=== PATIENT | male | born 1975 | race Caucasian/White ===

== ENCOUNTER 2017-07-02 04:46 | Emergency (ER) | payer OTHER, MEDICAID, SELFPAY ==
[2017-07-02 04:49] VITALS: BP 167/113; PULSE 97; RESP 20; TEMP 36.6; O2SAT 99; BMI 33.5
[2017-07-02 04:53] VITALS: BP 171/107; PULSE 103; RESP 20; O2SAT 99
--- NOTE | 2017-07-02 05:37 | ED.DCSUM_ITS ---
- ER Visit Summary Date of Service: 07/02/17 Chief Complaint: Rectal bleeding History of Present Illness: The patient is a 42 M presenting for evaluation secondary to rectal bleeding. Patient states that he was at work today he had a sudden onset of rectal bleeding. He states that he does have a history of hemorrhoids, but is never had bleeding similar to this. He states that he has a family history of colon cancer in his sister and he has never had a colonoscopy. He denies any weight loss or night sweats. He denies any usage of NSAIDs or aspirin. Denies any dark tarry stools. States that he has some abdominal fullness associated with this, but denies any presence of pain. Physical Examination: vital signs notable for blood pressure 171/107 heart rate of 103. Obese male no acute distress. No conjunctival pallor. Moist mucous membranes. No JVD heart was regular and tachycardic with no murmurs. Lung sounds clear. Abdomen was soft nontender nondistended normal bowel sounds no masses. Rectal exam shows a large external hemorrhoid at approximately the 7: 00 portion of the anus. This is nonthrombosed and does not appear to be actively bleeding. There is blood surrounding the anus. Digital rectal exam shows palpable internal hemorrhoids, and is grossly positive for blood. This was nontender as well. Test Results: CBC demonstrate leukocytosis 13 with normal hemoglobin and normal hematocrit. Chemistry panel unremarkable coagulation studies normal. Emergency Department Course and Treatment: Patient presented for evaluation secondary to GI bleeding. Patient had some mild tachycardia when he first arrived this likely was a element of being anxious. His tachycardia did improve on repeat evaluation. His laboratory workup was unremarkable, is not any sort of anticoagulants, he has normal vital signs. While he does have some active bleeding, this likely is from a bleeding hemorrhoid. I believe that he is appropriate for a trial of outpatient management of this GI bleed with outpatient follow-up for colonoscopy. Pt requested referral to Dr. Sullivan. Patient was given referral. He was given signs and symptoms which to return to the emergency department. Disposition: Discharge Impression: 1. Stable lower GI bleed 2. Familial history of colon cancer 3. Internal and external hemorrhoids This note was generated with [employer] software. It may contain incorrect words, spelling, and punctuation that were not noted in review of the chart prior to signing ED Disposition - Plan for ED Patient: Disposition: Home or Assisted Living Chief Complaint: GI Bleed Diagnosis: GI bleed Instructions: ED Hematochezia Stable Referrals: Travon Sullivan MD [STAFF PHYSICIAN] - As soon as possible
[2017-07-02 05:48] LABS: Absolute Lymphocyte Count 4.38 X10^3/ul (0.83-4.51); Absolute Neutrophil Count 7.6 X10^3/uL (2.0-7.7); Basophil# 0.06 X10^3/uL; Basophil% 0.4 % (0-1); Eosinophil# 0.55 X10^3/uL; Eosinophils% 4.1 % (0-5); Hematocrit 45.7 % (40-54); Hemoglobin 15.6 g/dl (13.0-16.5); Lymphocyte # 4.38 X10^3/ul (4.0); Lymphocyte % 32.5 % (19-41); Mean Corp Hgb Conc 34.1 g/gl (32-36); Mean Corpuscular Hgb 30.1 pg (27.0-32.0); Mean Corpuscular Volume 88.2 fL (80-94); Mean Platelet Vol. 11.5 fl (6.2-12.0); Monocyte# 0.83 X10^3/uL; Monocyte% 6.2 % (0-10); Neutrophil # 7.58 X10^3/uL (2.7-7.7); Neutrophil % 56.2 % (47-70); Partial Thromboplast Time 29.5 Seconds (24.1-36.2); Platelet Count 221 K/mm3 (150-450); RBC Distribution Width CV 13.8 % (11.6-14.6); RBC Distribution Width SD 44.4 fl (35.1-43.9); Red Blood Count 5.18 M/mm3 (4.6-6.2); White Blood Count 13.5 K/mm3 (4.4-11.0)
[2017-07-02 05:51] LABS: International Normalized Ratio 1.1; Prothrombin Time (Protime)PT. 13.7 SECONDS (11.7-14.9)
[2017-07-02 05:53] LABS: Anion Gap 9 (5-15); BUN 11 mg/dL (7-18); BUN/Creat Ratio 11.2 RATIO (10-20); Calcium,Total 8.5 mg/dL (8.5-10.1); Chloride 106 mmol/L (98-107); Creatinine, Serum 0.98 mg/dL (0.70-1.30); EST Glomerular Filtration Rate 90 mL/min (>60); Est Glom Filt Rate - Afr Amer 109 mL/min (>60); Estimated Creatinine Clearance 106.72 ml/min; Glucose 163 mg/dL (74-106); POSITIVE COUNT NO; POSITIVE DIFFERENTIAL NO; POSITIVE MORPHOLOGY NO; Potassium 3.7 mmol/L (3.5-5.1); Sodium Level 138 mmol/L (136-145)
[2017-07-02 06:16] VITALS: BP 159/99; RESP 18
== END 2017-07-02 06:17 | disposition home or self-care (01) ==
PROVIDERS: Emergency Provider Emergency Medicine; Family Provider Nurse Practitioner Family; PCP Nurse Practitioner Family
DX: K92.2 Gastrointestinal hemorrhage, unspecified (principal); K64.4 Residual hemorrhoidal skin tags; Z80.0 Family history of malignant neoplasm of digestive organs; Z72.0 Tobacco use
CPT/HCPCS: 80048; 85025; 85610; 85730; 99283

== ENCOUNTER 2017-08-01 05:54 | Emergency (ER) | payer OTHER, MEDICAID, SELFPAY ==
[2017-08-01 05:56] VITALS: BP 132/79; PULSE 112; RESP 16; TEMP 37; O2SAT 97; BMI 38.9
--- NOTE | 2017-08-01 05:57 | ED.RN ---
CALLED FOR EKG PER RN REQUEST, NO OLD EKG'S IN MUSE
--- NOTE | 2017-08-01 06:11 | EKG12_ITS ---
Test Reason : CP Blood Pressure : / mmHG Vent. Rate : 100 BPM Atrial Rate : 100 BPM P-R Int : 132 ms QRS Dur : 084 ms QT Int : 344 ms P-R-T Axes : 046 046 056 degrees QTc Int : 443 ms Normal sinus rhythm Normal ECG Confirmed by BALDO WAGNER ([id number]), movie editor BEN SCHNEIDER ([id number]) on 08/11/2017 6:19:45 PM Referred By: TRISTAN Confirmed By:BALDO WAGNER
--- NOTE | 2017-08-01 06:13 | ED.DCSUM_ITS ---
- ER Visit Summary Date of Service: 08/01/17 Chief Complaint: Chest pain History of Present Illness: The patient is a 42 M sudden left-sided chest pain starting at 5 AM while at work. Works hematoma noted when symptoms started. States tingling in his left hand and left leg. Denies dyspnea, nausea, diaphoresis. States pain is worse with deep breaths. EMS given 324 mg of aspirin. One nitroglycerin was given with moderate improvement however still states symptoms as a 6 out of 10. States squeezing sensation. History of hypertension, cousin with CA at age of 40. Tobacco history. No PE risk factors. No history of stress test or heart cath in the past. Physical Examination: General: Alert and oriented ?3, no acute distress HEENT: Normocephalic, atraumatic. Moist mucosa membranes Neck: supple, nontender. Cardiovascular: Regular rate 106 and rhythm, no murmurs Respiratory: Normal breath sounds, symmetric, no distress Abdomen: Soft, nontender, nondistended Extremities: Nontender, no edema, pulses intact ?4 Neuro: no focal neurological deficits. Test Results: EKG: Sinus rate of 100, no ST or T-wave changes. Chest x-ray negative. D-dimer negative. Troponin negative. Delta troponin pending. Emergency Department Course and Treatment: Patient EKG normal. Patient given nitro additionally, symptom-free. Troponin negative. Low risk Wells criteria for PE due to elevated heart rate. D-dimer obtained which was negative. Reevaluation patient symptom-free. Heart score is 3. I did suggest a heart pathway guideline with the patient, will obtain a delta troponin. If negative discharge with outpatient follow-up. Discussed if symptoms worsens he will return for reevaluation. Treatment Plan: [] Disposition: Plan discharge Impression: Acute chest pain This note was generated with [employer] dictation software. It may contain incorrect words, spelling, and punctuation that were not noted in review of the chart prior to signing ED Disposition - Plan for ED Patient: Disposition: Home or Assisted Living Chief Complaint: Chest Pain Diagnosis: Acute chest pain Instructions: ED Chest Pain Atypical Unkn Cause Referrals: David Cordoba [Primary Care Provider] - 3-5 Days
[2017-08-01 06:31] LABS: Absolute Lymphocyte Count 4.66 X10^3/ul (0.83-4.51); Absolute Neutrophil Count 6.6 X10^3/uL (2.0-7.7); Basophil# 0.07 X10^3/uL; Basophil% 0.5 % (0-1); Eosinophil# 0.61 X10^3/uL; Eosinophils% 4.7 % (0-5); Hematocrit 46.3 % (40-54); Hemoglobin 15.6 g/dl (13.0-16.5); Lymphocyte # 4.66 X10^3/ul (4.0); Lymphocyte % 35.7 % (19-41); Mean Corp Hgb Conc 33.7 g/gl (32-36); Mean Corpuscular Hgb 29.5 pg (27.0-32.0); Mean Corpuscular Volume 87.7 fL (80-94); Mean Platelet Vol. 12.1 fl (6.2-12.0); Monocyte# 1.01 X10^3/uL; Monocyte% 7.7 % (0-10); Neutrophil # 6.64 X10^3/uL (2.7-7.7); Platelet Count 258 K/mm3 (150-450); RBC Distribution Width CV 13.7 % (11.6-14.6); RBC Distribution Width SD 44.2 fl (35.1-43.9); Red Blood Count 5.28 M/mm3 (4.6-6.2)
[2017-08-01 06:34] LABS: POSITIVE COUNT NO; POSITIVE DIFFERENTIAL NO; POSITIVE MORPHOLOGY NO
[2017-08-01 06:42] VITALS: BP 132/76; PULSE 89
[2017-08-01 06:46] VITALS: BP 118/77; PULSE 108
[2017-08-01 07:02] LABS: D-Dimer Quantitative (DVT/PE) 0.36 FEU/ug/m (0.27-0.49)
[2017-08-01 07:07] LABS: Anion Gap 8 (5-15); BUN 12 mg/dL (7-18); BUN/Creat Ratio 14.3 RATIO (10-20); Calcium,Total 8.5 mg/dL (8.5-10.1); Chloride 109 mmol/L (98-107); Creatinine, Serum 0.84 mg/dL (0.70-1.30); EST Glomerular Filtration Rate 107 mL/min (>60); Est Glom Filt Rate - Afr Amer 130 mL/min (>60); Glucose 122 mg/dL (74-106); Potassium 3.9 mmol/L (3.5-5.1); Sodium Level 140 mmol/L (136-145)
--- NOTE | 2017-08-01 07:09 | RAD_ITS ---
STUDY: X-RAY CHEST REASON FOR EXAM: Male, 42 years old. chest pain TECHNIQUE: Frontal and lateral views of the chest. COMPARISON: None. FINDINGS: The lungs are clear and expanded. There is no demonstrated pleural abnormality. Normal size heart. Normal mediastinum and patsy. Normal visualized pulmonary arteries. Normal visualized aortic arch and descending thoracic aorta. Normal visualized thoracic spine. Normal visualized ribs, clavicles, and shoulders. There is no demonstrated abnormality of the visualized soft tissue structures of the upper abdomen. RAD/Chest PA and Lateral IMPRESSION: Normal x-ray examination of the chest. Electronically Signed: Leighann Barnhart MD at 7:40 EDT Tel , Service support ,
[2017-08-01 09:07] VITALS: BP 131/77; PULSE 102; RESP 16; O2SAT 93
--- NOTE | 2017-08-01 10:22 | ED.VISSUMM ---
- ER Visit Summary Date of Service: 08/01/17 Chief Complaint: [Chest pain] History of Present Illness: The patient is a 42 M [presented to the emergency department complaint of chest pain that started while at work today. Patient seen by Dr. Tay Cho and turned over to me awaiting a delta troponin. Patient was written for discharge if the delta troponin was negative. Patient's delta troponin was normal. Patient not currently having any chest pain. Patient tells me that he has a primary care physician that he will follow up with and get outpatient stress testing. Patient states that his chest pain was squeezing tightness that resolved after EMS gave him nitroglycerin. Patient does have a history of hypertension and he is a smoker and has a significant family history of heart disease as his father had [place] and open heart surgery in his 40s. I too had a long conversation with the patient and personally recommended admission for further evaluation and testing of his chest pain. Does not want to be admitted would prefer outpatient follow-up. Patient understands that he needs to return if his chest pain returns or condition should worsen in any way.] Physical Examination: [HEENT-PERRLA, EOMI. Cranial nerves II through XII grossly intact. TMs clear. Mucous membranes moist. No adenopathy. Cardiovascular-regular rate and rhythm without murmur or ectopy Lungs-clear to auscultation, chest wall stable without crepitus or subcu emphysema Abdomen-normoactive bowel sounds, soft, nontender, no rebound or rigidity, no peritoneal signs. Extremities-intact ?4, normal range of motion, normal pulses, atraumatic] Test Results: [The troponin was less than 0.015] Emergency Department Course and Treatment: [] Treatment Plan: [Follow-up with primary care physician for further evaluation. Disposition: [Discharged to home in stable condition] Impression: [Chest pain-etiology uncertain This note was generated with [employer] dictation software. It may contain incorrect words, spelling, and punctuation that were not noted in review of the chart prior to signing ED Disposition - Plan for ED Patient: Disposition: Home or Assisted Living Chief Complaint: Chest Pain Diagnosis: Acute chest pain Instructions: ED Chest Pain Atypical Unkn Cause Referrals: David Cordoba [Primary Care Provider] - 3-5 Days
== END 2017-08-01 10:50 | disposition home or self-care (01) ==
PROVIDERS: Emergency Provider Emergency Medicine; Family Provider Family Medicine; PCP Family Medicine
DX: R07.9 Chest pain, unspecified (principal); I10 Essential (primary) hypertension; F17.200 Nicotine dependence, unspecified, uncomplicated; Z79.899 Other long term (current) drug therapy
CPT/HCPCS: 36415; 71046; 80048; 84484; 85025; 85379; 93005; 99285; J7030; A4216

== ENCOUNTER 2018-10-20 09:39 | Inpatient (IN) | payer SELFPAY ==
[2018-10-20] VITALS (13 sets, daily range): BP systolic 143–170; BP diastolic 83–116; PULSE 98–121; RESP 14–20; TEMP 36.1–36.7; O2SAT 95–97; BMI 33.0; BMI 38.2; BMI 38.3
--- NOTE | 2018-10-20 09:50 | EKG12_ITS ---
Test Reason : DIZZINES Blood Pressure : / mmHG Vent. Rate : 105 BPM Atrial Rate : 105 BPM P-R Int : 140 ms QRS Dur : 084 ms QT Int : 322 ms P-R-T Axes : 058 052 036 degrees QTc Int : 425 ms Sinus tachycardia Possible Left atrial enlargement Borderline ECG Confirmed by BALDO WAGNER ([id number]), acquisitions editor CHICA PEGUERO ([id number]) on 10/26/2018 2:22:30 PM Referred By: Kelsey Teran Confirmed By:BALDO WAGNER
--- NOTE | 2018-10-20 09:55 | NURSING ---
NO OLD EKGS
[2018-10-20 10:05] LABS: Absolute Lymphocyte Count 2.35 X10^3/uL (0.83-4.51); Absolute Neutrophil Count 6.5 X10^3/uL (2.0-7.7); Basophil# 0.08 X10^3/uL; Basophil% 0.8 % (0-1); Eosinophil# 0.33 X10^3/uL; Eosinophils% 3.2 % (0-5); Hematocrit 45.4 % (40-54); Lymphocyte # 2.35 X10^3/ul (4.0); Lymphocyte % 22.9 % (19-41); Mean Corpuscular Hgb 30.1 pg (27.0-32.0); Mean Corpuscular Volume 91.2 fL (80-94); Mean Platelet Vol. 12.6 fl (6.2-12.0); Monocyte# 0.89 X10^3/uL; Monocyte% 8.7 % (0-10); NRBC Flagged by Analyzer 0 % (0-5); Neutrophil # 6.52 X10^3/uL (2.7-7.7); Neutrophil % 63.6 % (47-70); Platelet Count 190 K/mm3 (150-450); RBC Distribution Width CV 13.1 % (11.6-14.6); RBC Distribution Width SD 43.9 fl (35.1-43.9); Red Blood Count 4.98 M/mm3 (4.6-6.2); White Blood Count 10.3 K/mm3 (4.4-11.0)
[2018-10-20] MEDS: 0.9% Normal Saline 1,000 ML 150 ML IV ×3 (10:13→23:10)
[2018-10-20 10:24] LABS: Bacteria 0 SEEN /hpf (None Seen); Mucous, Urine 0 SEEN /hpf (<or=2+); Red Blood Cells-Urine 0 SEEN /hpf (0-5); Squamous Epithelial Cells - UA 0 SEEN /hpf (0-5); White Blood Cells 0 SEEN /hpf (0-5)
[2018-10-20 10:41] LABS: Color, Urine Straw (Yellow); Glucose, Dipstick 1000 mg/dl (Normal); Ketone-Dipstick Negative (Negative); Leukocyte Esterase-Dipstick Negative /ul (Negative); Nitrite-Dipstick Negative (Negative); Occult Blood-Urine Negative /ul (Negative); Protein-Dipstick Negative (Negative); Specific Gravity, Urine 1.005 (1.002-1.030); Urine Bilirubin Dipstick Negative (Negative); Urine Clarity Clear (Clear); Urine Urobilinogen Normal (Normal)
[2018-10-20 10:43] LABS: Anion Gap 9 (5-15); BUN 14 mg/dL (7-18); BUN/Creat Ratio 9.5 RATIO (10-20); Calcium,Total 9.2 mg/dL (8.5-10.1); Chloride 94 mmol/L (98-107); Creatinine, Serum 1.47 mg/dL (0.70-1.30); EST Glomerular Filtration Rate 56 mL/min (>60); Est Glom Filt Rate - Afr Amer 68 mL/min (>60); Estimated Creatinine Clearance 68.28 ml/min; Glucose 915 mg/dL (74-106); Potassium 4.2 mmol/L (3.5-5.1); Sodium Level 126 mmol/L (136-145)
--- NOTE | 2018-10-20 11:00 | ED.VISSUMM ---
- ER Visit Summary Date of Service: 10/20/18 Chief Complaint: [Blurry vision and increased thirst as well as frequent urination] History of Present Illness: The patient is a 43 M [resents to the emergency department with complaints for 6 or 7 weeks. Patient states that about 5 weeks ago he was seen by his primary care physician and in the office had a blood sugar of 298. Patient states that he lost his insurance and did not have any of the diabetic testing. Patient just has not felt well and had increased fatigue. His significant other made him come in today and get evaluated. Patient denies any fevers or recent illness. He otherwise has no medical history.] Physical Examination: [HEENT-PERRLA, EOMI. Cranial nerves II through XII grossly intact. TMs clear. Mucous membranes dry. No adenopathy. Cardiovascular-regular and tachycardic. No murmurs auscultated. Lungs-clear to auscultation, chest wall stable without crepitus or subcu emphysema Abdomen-normoactive bowel sounds, soft, nontender, no rebound or rigidity, no peritoneal signs. Extremities-intact ?4, normal range of motion, normal pulses, atraumatic] Test Results: [EKG obtained arrival shows sinus rhythm with a ventricular rate of 105 bpm with questionable atrial enlargement. CBC with differential showing a 10.3, hemoglobin 15, hematocrit 45, plates 190. Chemistry showed a sodium 126, potassium 4.2, chloride 94, CO2 23, glucose was 915. BUN 14 creatinine 1.47. Troponin is less than 1015.] Emergency Department Course and Treatment: [Patient was given normal saline and started on an insulin drip] Treatment Plan: [Admit] Disposition: [Admit] Impression: [Upper glycemia Hyperosmolar nonketotic state] This note was generated with [employer] dictation software. It may contain incorrect words, spelling, and punctuation that were not noted in review of the chart prior to signing ED Disposition - Plan for ED Patient: Referrals: Care Physician,No Primary [Primary Care Provider] -
--- NOTE | 2018-10-20 11:11 | HP.PCM_ITS ---
Problem List (1) Diabetes mellitus Status: Acute Qualifiers: Diabetes mellitus type: other specified (including FRED) Diabetes mellitus complication status: with other specified complication (2) Hypertension Status: Chronic Qualifiers: Hypertension type: essential hypertension Qualified Code(s): I10 - Essential (primary) hypertension (3) Hyperlipidemia Status: Chronic Qualifiers: Hyperlipidemia type: unspecified Qualified Code(s): E78.5 - Hyperlipidemia, unspecified (4) Obesity (BMI 30.0-34.9) Status: Chronic (5) Tobacco use Status: Chronic (6) ADD (attention deficit disorder) Status: Chronic Qualifiers: Hyperactivity presence: unspecified Qualified Code(s): F98.8 - Other specified behavioral and emotional disorders with onset usually occurring in childhood and adolescence History of Present Illness Date of Admission: 10/20/18 Chief Complaint: Malaise, fatigue, polyuria, polydipsia. The patient is a 43 y/o M w/ PMHx: Hypertension, hyperlipidemia, tobacco use, ADD with history of being evaluated proximally 1 month prior per his primary care physician with in office fingerstick with glucose 298 secondary to ongoing fatigue, dizziness, polyuria and polydipsia although mild at that time with additional lab orders requested however patient lost his insurance and was unable to complete this work-up in addition to discontinuation of his blood pressure and ADD regimen who now presents to the [facility] ED on 10/20/18 with progressively worsening fatigue, dizziness, malaise, polyuria, polydipsia, nausea with poor oral intake abilities over the last 1 week. Work-up in the ED included T 97, heart rate initially 121 with improvement 104, BP 160/116, respiratory rate 19, 96% room air, CBC with WC 10.3, hemoglobin 15, platelets 190 without shift, BMP with sodium 126, chloride 94, anion gap normal at 9, BUN 14, creatinine 1.47 with prior noted in 2018 at 0.84, glucose 915, hemoglobin A1c 10, troponin less than 0.015, urinalysis with glucose 1000 otherwise unremarkable with no ketones present, EKG with no acute evidence of ischemia with sinus tachycardia. In the ED patient initiated on normal saline at 150 cc/h in addition to insulin drip. Past Medical History Past Medical History (Chronic Problems): Chronic Problems (This Medical Record has been edited. Action required.) Hypertension (Chronic) Hyperlipidemia (Chronic) Obesity (BMI 30.0-34.9) (Chronic) Tobacco use (Chronic) ADD (attention deficit disorder) (Chronic) Allergies No Known Allergies Allergy (Verified 10/20/18 09:39) Home Medications: Ambulatory Orders Medication Instructions Recorded Lisdexamfetamine Dimesylate 60 mg PO DAILY 07/02/17 [Vyvanse] Vyvanse 60 mg PO DAILY 08/01/17 Surgical History: no surgical history Psychiatric History: Attn. deficit disorder Lives: Spouse/ Significant Other, With Family Smoking Status: Current every day smoker - Patient currently smokes 1 pack/day cigarette tobacco usage starting when he was approximately 22 years old. Tobacco Use: Cigarettes Alcohol: Occasional Drugs: None - *Family History Maternal History Items: - - Patient notes a maternal family history of heart disease, MD, coronary disease with stents placed. She also notes a maternal family side of notable diabetic history in both his mother's parents. Paternal History Items: - - Patient notes a paternal family history of heart disease, COPD. Patient also notes a market paternal family history with diabetes in both of his father's parents. Review of Systems Constitutional: Reports: Anorexia, Malaise, Weakness, Fatigue. Denies: Chills, Fever, Weight Change HEENT: Denies: Head Aches, Sinus Congestion, Sinus Drainage Cardiovascular: Denies: Chest Pain, Palpitations Respiratory: Denies: Cough, Shortness of breath at rest, Sputum production Gastrointestinal: Reports: Nausea. Denies: Abdominal Pain, Vomiting Genitourinary: Reports: Frequency. Denies: Dysuria Musculoskeletal: Reports: Joint Pain. Denies: Joint Tenderness Skin: Denies: Rash, Wounds Neurological: Denies: Numbness, Tingling, Focal weakness Psychiatric: Reports: - - ADD.. Denies: Anxiety, Depression, Homicidal Ideations, Suicidal Ideations Endocrine: Reports: Polydipsia, Polyuria Hematologic/ Lymphatic: Denies: Easy Bruising, Easy Bleeding VTE Information - Inpt Only VTE Present on Admission: No VTE Mechan Device Prophylaxis: SCD's VTE Pharm Prophylaxis ordered?: Yes Patient Problems: Active and Suspected Problems (This Medical Record has been edited. Action required.) Diabetes mellitus (Acute) Subjective: Seated upright in ED bed, fatigued appearance, notes nauseous otherwise no acute complaint. Objective: Physical Examination: General: awake, alert, oriented x 3 and cooperative, seated upright in the ED bed, fatigued appearance, notes nauseous otherwise no acute complaint, insulin drip being initiated now. Skin: normal color, turgor, no icterus, cyanosis. HEENT: AT/NC, EOMI, PERRLA, dry MM, no carotid bruits or JVD noted. Lungs: CTA bilaterally, moderate effort, mild decrease BL bases, no rales, ronchi or wheezing. Heart: Improved but mildly tachycardic with regular rhythm; no gallop, rub audible. Abdomen: soft, pes, NTTP, ND, normal BS, no HSM. Extremities: no cyanosis, clubbing, or edema. Neurological: patient awake, alert, oriented x 3; cognitive function intact; pupils equally reactive to light and accomodation; cranial nerves II-XII grossly normal, moving all 4 extremities, no focal deficits, strength moderately global decrease secondary to acute presentation. Psychiatric: affect appears fatigued, no acute evidence of depressive or anxiety feelings. - Physical Exam Vital Signs Temp Pulse Resp BP Pulse Ox 97.0 F L 100 16 143/97 H 95 10/20/18 09:39 10/20/18 10:07 10/20/18 10:07 10/20/18 10:07 10/20/18 10:07 Oxygen Delivery Method Room Air Weight: 230 lb Body Mass Index (BMI) 33.0 Laboratory Tests Past 24 Hrs 10/20/18 10/20/18 10/20/18 10:00 10:00 10:00 WBC 10.3 RBC 4.98 Hgb 15.0 Hct 45.4 MCV 91.2 MCH 30.1 MCHC 33.0 RDW Std Deviation 43.9 RDW Coeff of Solis 13.1 Plt Count 190 MPV 12.6 H Immature Gran % (Auto) 0.800 Neut % (Auto) 63.6 Lymph % (Auto) 22.9 Fountain % (Auto) 8.7 Eos % (Auto) 3.2 Baso % (Auto) 0.8 Absolute Neuts (auto) 6.5 Absolute Lymphs (auto) 2.35 Nucleated RBC % 0 Sodium 126 L Potassium 4.2 Chloride 94 L Carbon Dioxide 23.0 Anion Gap 9 BUN 14 Creatinine 1.47 H Estim Creat Clear Calc 68.28 Est GFR (MDRD) Af Amer 68 Est GFR (MDRD) Non-Af 56 L BUN/Creatinine Ratio 9.5 L Glucose 915 H* Hemoglobin A1c 10.0 H Calcium 9.2 Troponin I < 0.015 Urine Color Urine Clarity Urine pH Ur Specific Austin Urine Protein Urine Glucose (UA) Urine Ketones Urine Occult Blood Urine Nitrite Urine Bilirubin Urine Urobilinogen Ur Leukocyte Esterase Urine RBC Urine WBC Ur Squamous Epith Cells Urine Bacteria Urine Mucus 10/20/18 10:10 WBC RBC Hgb Hct MCV MCH MCHC RDW Std Deviation RDW Coeff of Solis Plt Count MPV Immature Gran % (Auto) Neut % (Auto) Lymph % (Auto) Fountain % (Auto) Eos % (Auto) Baso % (Auto) Absolute Neuts (auto) Absolute Lymphs (auto) Nucleated RBC % Sodium Potassium Chloride Carbon Dioxide Anion Gap BUN Creatinine Estim Creat Clear Calc Est GFR (MDRD) Af Amer Est GFR (MDRD) Non-Af BUN/Creatinine Ratio Glucose Hemoglobin A1c Calcium Troponin I Urine Color Straw Urine Clarity Clear Urine pH 6.0 Ur Specific Austin 1.005 Urine Protein Negative Urine Glucose (UA) 1000 H Urine Ketones Negative Urine Occult Blood Negative Urine Nitrite Negative Urine Bilirubin Negative Urine Urobilinogen Normal Ur Leukocyte Esterase Negative Urine RBC 0 SEEN Urine WBC 0 SEEN Ur Squamous Epith Cells 0 SEEN Urine Bacteria 0 SEEN Urine Mucus 0 SEEN Assessment/Plan All Active Problems (This Medical Record has been edited. Action required.) Diabetes mellitus (Acute) The patient is a 43 y/o M w/ PMHx: Hypertension, hyperlipidemia, tobacco use, ADD with history of being evaluated proximally 1 month prior per his primary ca re physician with in office fingerstick with glucose 298 secondary to ongoing fatigue, dizziness, polyuria and polydipsia although mild at that time with additional lab orders requested however patient lost his insurance and was unable to complete this work-up in addition to discontinuation of all his medications. 1. Hyperglycemia with new onset diabetes mellitus: Work-up in the ED included T 97, heart rate initially 121 with improvement 104, BP 160/116, respiratory rate 19, 96% room air, CBC with WC 10.3, hemoglobin 15, platelets 190 without shift, BMP with sodium 126, chloride 94, anion gap normal at 9, BUN 14, creatinine 1.47 with prior noted in 2018 at 0.84, glucose 915, hemoglobin A1c 10, troponin less than 0.015, urinalysis with glucose 1000 otherwise unremarkable with no ketones present, EKG with no acute evidence of ischemia with sinus tachycardia. Given that insulin drip was already initiated in the ED will continue, admit to the ICU, check serial K+, glucose w/ IVF changes pending these levels, serial chemistry, obtain mag, phos daily w/ repletion as needed, transition to home SC regimen once blood sugars remain less than 250?2 serially, nutrition consultation for education and teaching. Encouraged diet diabetic regimen compliance. Once clinically improved will need to consider transition to oral regimen also upon discharge pending repeat renal function. Case management consultation to assist with discharge planning given no insurance and inability to afford medications. 2. Acute kidney injury: Secondary to acute presentation #1, hyperglycemia, new onset diabetes. Admission BUN/Cr 14/1.47, prior baseline creatinine noted to be 0.8-0.9. Will hydrate, hold re-addition of any nephrotoxic medications, running as noted #1 with also repeat chemistry in AM. If no improvement would plan FeNa and renal ultrasound assessment. 3. Hyponatremia, secondary to #1, hyperglycemic with new onset DM: We will continue to aggressively hydrate, administer 2 L bolus as not initiated in the ED, continue aggressive IV hydration following this, with resolution of hypoglycemia expect normalization. 4. Hypertension: Once JERRY has resolved will restart lisinopril regimen, and interim IV hydralazine PRN. 5. Hyperlipidemia: Not on regimen, FLP in a.m. 6. Tobacco Abuse: Encouraged cessation, inpatient consultation per RT, NR if desired. 7. Obesity: Weight loss and lifestyle changes encouraged, nutrition consulted. 8. DVT prophylaxis: SCDs, Lovenox. Code Visit Inpatient E&M: [id number] Init Hosp L3
--- NOTE | 2018-10-20 11:12 | NURSING ---
DR DOUGLAS FOR DR HIDALGO
--- NOTE | 2018-10-20 11:15 | NURSING ---
ICU WHITE HYPEROSMOLAR NON KETOTIC STATE, HYPERGLYCEMIA
[2018-10-20] MEDS: 0.9% Normal Saline 1,000 ML 999 ML IV ×2 (12:22→13:37)
[2018-10-20 13:16] LABS: Bedside Glucose 444 mg/dL (70-110)
[2018-10-20 13:16] LABS: Bedside Glucose > 500 mg/dL (70-110)
[2018-10-20 13:20] LABS: Osmolality, Serum 320 mOsm/KG (275-295)
[2018-10-20 13:22] LABS: Magnesium 2.1 mg/dL (1.6-2.6); Phosphorus 4.2 mg/dL (2.5-4.9)
[2018-10-20 14:15] LABS: Bedside Glucose 320 mg/dL (70-110)
[2018-10-20 14:32] LABS: Anion Gap 3 (5-15); BUN 11 mg/dL (7-18); BUN/Creat Ratio 11.4 RATIO (10-20); Calcium,Total 8.9 mg/dL (8.5-10.1); Chloride 108 mmol/L (98-107); Creatinine, Serum 0.96 mg/dL (0.70-1.30); EST Glomerular Filtration Rate 91 mL/min (>60); Est Glom Filt Rate - Afr Amer 110 mL/min (>60); Estimated Creatinine Clearance 104.56 ml/min; Glucose 339 mg/dL (74-106); Potassium 3.9 mmol/L (3.5-5.1); Sodium Level 138 mmol/L (136-145)
[2018-10-20 15:10] LABS: Bedside Glucose 316 mg/dL (70-110)
[2018-10-20 16:16] LABS: Bedside Glucose 266 mg/dL (70-110)
[2018-10-20 17:46] LABS: Bedside Glucose 215 mg/dL (70-110)
[2018-10-20] MEDS: Insulin Lispro 100 UNIT/ML INSULN.PEN SC ×2 (17:49→21:17)
[2018-10-20 21:41] LABS: Bedside Glucose 339 mg/dL (70-110)
[2018-10-21 02:00] VITALS: BP 137/87; PULSE 82; RESP 18; TEMP 36.7; O2SAT 97
[2018-10-21 06:24] LABS: Absolute Lymphocyte Count 2.83 X10^3/uL (0.83-4.51); Absolute Neutrophil Count 6.3 X10^3/uL (2.0-7.7); Basophil# 0.08 X10^3/uL; Basophil% 0.8 % (0-1); Eosinophils% 3.9 % (0-5); Hematocrit 44.2 % (40-54); Hemoglobin 14.5 g/dL (13.0-16.5); Lymphocyte # 2.83 X10^3/ul (4.0); Lymphocyte % 27.3 % (19-41); Mean Corp Hgb Conc 32.8 g/dL (32-36); Mean Corpuscular Hgb 29.1 pg (27.0-32.0); Mean Corpuscular Volume 88.8 fL (80-94); Mean Platelet Vol. 12.4 fl (6.2-12.0); Monocyte# 0.68 X10^3/uL; Monocyte% 6.6 % (0-10); NRBC Flagged by Analyzer 0 % (0-5); Neutrophil % 60.6 % (47-70); Platelet Count 171 K/mm3 (150-450); RBC Distribution Width CV 13.1 % (11.6-14.6); RBC Distribution Width SD 42.6 fl (35.1-43.9); Red Blood Count 4.98 M/mm3 (4.6-6.2); White Blood Count 10.4 K/mm3 (4.4-11.0)
[2018-10-21 06:44] LABS: Anion Gap 8 (5-15); BUN 13 mg/dL (7-18); BUN/Creat Ratio 16.2 RATIO (10-20); Chloride 105 mmol/L (98-107); Cholesterol 238 mg/dL (200); EST Glomerular Filtration Rate 113 mL/min (>60); Est Glom Filt Rate - Afr Amer 136 mL/min (>60); Estimated Creatinine Clearance 125.47 ml/min; Glucose 293 mg/dL (74-106); High Density Lipoprotein 22 mg/dL; Potassium 4.1 mmol/L (3.5-5.1); Sodium Level 136 mmol/L (136-145); Triglycerides 500 mg/dL
[2018-10-21 06:53] VITALS: BP 158/101; PULSE 87; RESP 18; TEMP 36.4; O2SAT 99
[2018-10-21 07:01] LABS: Bedside Glucose 311 mg/dL (70-110)
[2018-10-21 08:00] VITALS: BP 178/115; PULSE 87; RESP 16; TEMP 36.8; O2SAT 97
[2018-10-21] MEDS: Insulin Lispro 100 UNIT/ML INSULN.PEN SC (08:01)
[2018-10-21] MEDS: Lisinopril 10 MG Tablet PO (08:11)
--- NOTE | 2018-10-21 08:15 | DCINST_ITS ---
- Discharge Diagnoses Current Active Problems: Current Active and Chronic Problems (This Medical Record has been edited. Action required.) Diabetes mellitus (Acute) Hypertension (Chronic) Hyperlipidemia (Chronic) Obesity (BMI 30.0-34.9) (Chronic) Tobacco use (Chronic) ADD (attention deficit disorder) (Chronic) You will use the following diet at home:: Calorie/Carbohydrate Controlled (specify 1200, 1400, etc) - 1800 calories Your food should be the consistency of: Regular Your liquids should be the consistency of: Regular/Thin Discharge Activity: Return to Normal Activity Call your doctor if you observe: Fever of 101 or Higher, Shortness of breath, Dizziness, Fainting spells, Swelling in the ankles, Chest pain, Increased palpitations (irregular heartbeat) Instructions: A1c, Diabetes: Understanding Carbohydrates, Diabetes: Understanding Carbohydrates, Fats, and Protein, Diabetes: Ways to Take Medication, Oral Therapy for Type 2 Diabetes, Types of Insulin, Using Injected Insulin Additional Instructions: F/u with your PCP in 3-5 days for repeat BMP to evaluate BG and creatinine Allergies/Adverse Reactions: Allergies No Known Allergies Allergy (Verified 10/20/18 09:39) Medications to take at Discharge Lisdexamfetamine Dimesylate [Vyvanse] 70 mg PO DAILY 10/20/18 Atorvastatin Calcium [Lipitor] 40 mg PO QHS #30 tab 10/21/18 Insulin Glargine [Lantus SoloStar Pen] 20 units SUBCUT QHS #1 pen 10/21/18 Lisinopril [Zestril] 10 mg PO DAILY #30 tab 10/21/18 Metformin HCl [Metformin ER Gastric] 500 mg PO DAILY #30 [id number] 10/21/18 The following prescriptions were given: Insulin Glargine [Lantus SoloStar Pen] 20 units SUBCUT QHS #1 pen Transmission Status: Pending to [facility] Atorvastatin Calcium [Lipitor] 40 mg PO QHS #30 tab Transmission Status: Pending to [facility] Metformin HCl [Metformin ER Gastric] 500 mg PO DAILY #30 [id number] Transmission Status: Pending to [facility] Lisinopril [Zestril] 10 mg PO DAILY #30 tab Transmission Status: Pending to [facility] Orders to be completed after discharge: Glucometer Location: None Selected Primary Care Physician: Care Physician,No Primary [NON-STAFF] - Please follow up with your Primary Care Physician in: 3-5 days Test Results: Test results from this visit will be discussed in further detail at your follow- up appointment, if applicable.
--- NOTE | 2018-10-21 08:19 | DS.PCM_ITS ---
Discharge Date and Diagnosis - Problem List Patient Problems: Active and Suspected Problems (This Medical Record has been edited. Action required.) Diabetes mellitus (Acute) Date of Admission: 10/20/18 Date of Discharge: 10/21/18 - Primary Discharge Diagnosis Active and Suspected Problems (This Medical Record has been edited. Action required.) Diabetes mellitus (Acute) - Secondary Discharge Diagnosis Chronic Problems (This Medical Record has been edited. Action required.) Hypertension (Chronic) Hyperlipidemia (Chronic) Obesity (BMI 30.0-34.9) (Chronic) Tobacco use (Chronic) ADD (attention deficit disorder) (Chronic) Hospital Course and Treatment Imaging Results: None Consults: None Operations: None Procedures: None Summary of Care Provided: Per HPI: The patient is a 43 y/o M w/ PMHx: Hypertension, hyperlipidemia, tobacco use, ADD with history of being evaluated proximally 1 month prior per his primary care physician with in office fingerstick with glucose 298 secondary to ongoing fatigue, dizziness, polyuria and polydipsia although mild at that time with additional lab orders requested however patient lost his insurance and was unable to complete this work-up in addition to discontinuation of his blood pressure and ADD regimen who now presents to the [facility] ED on 10/20/18 with progressively worsening fatigue, dizziness, malaise, polyuria, polydipsia, nausea with poor oral intake abilities over the last 1 week. Work-up in the ED included T 97, heart rate initially 121 with improvement 104, BP 160/116, respiratory rate 19, 96% room air, CBC with WC 10.3, hemoglobin 15, platelets 190 without shift, BMP with sodium 126, chloride 94, anion gap normal at 9, BUN 14, creatinine 1.47 with prior noted in 2018 at 0.84, glucose 915, hemoglobin A1c 10, troponin less than 0.015, urinalysis with glucose 1000 otherwise unremarkable with no ketones present, EKG with no acute evidence of ischemia with sinus tachycardia. In the ED patient initiated on normal saline at 150 cc/h in addition to insulin drip. Hospital Course 1. New onset type 2 diabetes/HTN/HLD/hyponatremia/morbid [id number] male who presented with polyuria, polydipsia as well as malaise and fatigue was found to have a blood sugar of 900 without any ketones or acidemia. He was initially started on an insulin drip in the ER and was rapidly titrated off and given multiple fluid boluses, which resolved his hyponatremia. He improved much faster than anticipated, he feels much better today and would like to go home. I had an extensive discussion with him about his diagnosis of diabetes and then the medication that would be necessary for him to be on. Given his elevated blood pressure between the 140s and 160 systolic, I started him on lisinopril 10 mg daily. Also his triglycerides and cholesterol were elevated and therefore I started him on Lipitor 40 mg. He was on Lantus 10 units twice daily as well as a sliding scale insulin, his blood sugars today were in the high 200s to low 300s. I continued with his Lantus at 20 units at night and discontinued his sliding scale on discharge. I started him on 500 mg of metformin extended release with instructions to increase to 2 pills in 2 weeks if he is not having any GI discomfort. He needs to follow-up with his primary care doctor in 3 to 5 days for a BMP to evaluate his creatinine given the fact that he was started on lisinopril. He states that his biggest downfall is that he drinks 3-4, 20 ounce bottles of regular Mountain Dew. I discussed with him that the sugar load in these alone would be enough to lead to his diabetes. He understands that he needs to cut this out completely and hopefully will be able to come off of insulin fairly quickly if he makes his lifestyle modifications and changes, and loses a significant amount of weight. Patient Problems: Active and Suspected Problems (This Medical Record has been edited. Action required.) Diabetes mellitus (Acute) - Physical Exam General: Alert, Oriented x3, Cooperative, No apparent distress HEENT: Atraumatic, PERRLA, EOMI, Normocephalic Oral: Moist Mucosa Neck: Supple, No JVD Lungs: Clear to auscultation, Normal air movement, No rhonchi, No wheeze, No rales Cardiovascular: Regular rate, Regular Rhythm, Normal S1, Normal S2, No murmurs Abdomen: Soft, Non Tender, Non-Distended, No Hepato-splenomegaly, Obese Extremities: No edema, Capillary Refill Less than 3 Seconds Skin: No rashes, No breakdown Neurological: Neuro grossly intact, Sensory exam intact to light touch and pain Psych/Mental Status: Normal Affect, Appropriate Vital Signs Temp Pulse Resp BP Pulse Ox 97.5 F L 87 18 158/101 H 99 10/21/18 06:53 10/21/18 06:53 10/21/18 06:53 10/21/18 06:53 10/21/18 06:53 Oxygen Delivery Method Room Air Weight: 266 lb 12.149 oz Body Mass Index (BMI) 38.2 Intake and Output for Last 24 Hours 10/19/18 10/20/18 10/21/18 23:59 23:59 23:59 Intake Total 4258.16 / 4258.16 1000 / 1000 Output Total 450 / 450 1500 / 1500 Balance 3808.16 / 3808.16 -500 / -500 Laboratory Tests Past 24 Hrs 10/20/18 10/20/18 10/20/18 10:00 10:00 10:00 WBC 10.3 RBC 4.98 Hgb 15.0 Hct 45.4 MCV 91.2 MCH 30.1 MCHC 33.0 RDW Std Deviation 43.9 RDW Coeff of Solis 13.1 Plt Count 190 MPV 12.6 H Immature Gran % (Auto) 0.800 Neut % (Auto) 63.6 Lymph % (Auto) 22.9 [place] % (Auto) 8.7 Eos % (Auto) 3.2 Baso % (Auto) 0.8 Absolute Neuts (auto) 6.5 Absolute Lymphs (auto) 2.35 Nucleated RBC % 0 Sodium 126 L Potassium 4.2 Chloride 94 L Carbon Dioxide 23.0 Anion Gap 9 BUN 14 Creatinine 1.47 H Estim Creat Clear Calc 68.28 Est GFR (MDRD) Af Amer 68 Est GFR (MDRD) Non-Af 56 L BUN/Creatinine Ratio 9.5 L Glucose 915 H* Hemoglobin A1c 10.0 H Serum Osmolality Calcium 9.2 Phosphorus Magnesium Troponin I < 0.015 Triglycerides Cholesterol LDL Cholesterol VLDL Cholesterol HDL Cholesterol Urine Color Urine Clarity Urine pH Ur Specific [place] Urine Protein Urine Glucose (UA) Urine Ketones Urine Occult Blood Urine Nitrite Urine Bilirubin Urine Urobilinogen Ur Leukocyte Esterase Urine RBC Urine WBC Ur Squamous Epith Cells Urine Bacteria Urine Mucus 10/20/18 10/20/18 10/20/18 10:00 10:00 10:10 WBC RBC Hgb Hct MCV MCH MCHC RDW Std Deviation RDW Coeff of Solis Plt Count MPV Immature Gran % (Auto) Neut % (Auto) Lymph % (Auto) [place] % (Auto) Eos % (Auto) Baso % (Auto) Absolute Neuts (auto) Absolute Lymphs (auto) Nucleated RBC % Sodium Potassium Chloride Carbon Dioxide Anion Gap BUN Creatinine Estim Creat Clear Calc Est GFR (MDRD) Af Amer Est GFR (MDRD) Non-Af BUN/Creatinine Ratio Glucose Hemoglobin A1c Serum Osmolality 320 H Calcium Phosphorus 4.2 Magnesium 2.1 Troponin I Triglycerides Cholesterol LDL Cholesterol VLDL Cholesterol HDL Cholesterol Urine Color Straw Urine Clarity Clear Urine pH 6.0 Ur Specific [place] 1.005 Urine Protein Negative Urine Glucose (UA) 1000 H Urine Ketones Negative Urine Occult Blood Negative Urine Nitrite Negative Urine Bilirubin Negative Urine Urobilinogen Normal Ur Leukocyte Esterase Negative Urine RBC 0 SEEN Urine WBC 0 SEEN Ur Squamous Epith Cells 0 SEEN Urine Bacteria 0 SEEN Urine Mucus 0 SEEN 10/20/18 10/21/18 10/21/18 14:10 06:05 06:05 WBC 10.4 RBC 4.98 Hgb 14.5 Hct 44.2 MCV 88.8 MCH 29.1 MCHC 32.8 RDW Std Deviation 42.6 RDW Coeff of Solis 13.1 Plt Count 171 MPV 12.4 H Immature Gran % (Auto) 0.800 Neut % (Auto) 60.6 Lymph % (Auto) 27.3 [place] % (Auto) 6.6 Eos % (Auto) 3.9 Baso % (Auto) 0.8 Absolute Neuts (auto) 6.3 Absolute Lymphs (auto) 2.83 Nucleated RBC % 0 Sodium 138 136 Potassium 3.9 4.1 Chloride 108 H 105 Carbon Dioxide 27.0 23.0 Anion Gap 3 L 8 BUN 11 13 Creatinine 0.96 0.80 Estim Creat Clear Calc 104.56 125.47 Est GFR (MDRD) Af Amer 110 136 Est GFR (MDRD) Non-Af 91 113 BUN/Creatinine Ratio 11.4 16.2 Glucose 339 H 293 H Hemoglobin A1c Serum Osmolality Calcium 8.9 8.0 L Phosphorus Magnesium Troponin I Triglycerides 500 H Cholesterol 238 H LDL Cholesterol TNP VLDL Cholesterol TNP HDL Cholesterol 22 L Urine Color Urine Clarity Urine pH Ur Specific [place] Urine Protein Urine Glucose (UA) Urine Ketones Urine Occult Blood Urine Nitrite Urine Bilirubin Urine Urobilinogen Ur Leukocyte Esterase Urine RBC Urine WBC Ur Squamous Epith Cells Urine Bacteria Urine Mucus POC Glucose 10/21/18 10/20/18 10/20/18 06:54 21:09 17:39 POC Glucose 311 H 339 H 215 H 10/20/18 10/20/18 10/20/18 16:04 15:04 14:01 POC Glucose 266 H 316 H 320 H 10/20/18 10/20/18 13:05 12:06 POC Glucose 444 H > 500 H* Discharge Diet: 1800 Calorie Control Diet, Carb Control Diet Discharge Activity: Return to Normal Activity Call your doctor if you observe: Fever of 101 or Higher, Shortness of breath, Dizziness, Fainting spells, Swelling in the ankles, Chest pain, Increased palpitations (irregular heartbeat) Home Medications: Medications to take at Discharge Lisdexamfetamine Dimesylate [Vyvanse] 70 mg PO DAILY 10/20/18 Atorvastatin Calcium [Lipitor] 40 mg PO QHS #30 tab 10/21/18 Insulin Glargine [Lantus SoloStar Pen] 20 units SUBCUT QHS #1 pen 10/21/18 Lisinopril [Zestril] 10 mg PO DAILY #30 tab 10/21/18 Metformin HCl [Metformin ER Gastric] 500 mg PO DAILY #30 [id number] 10/21/18 Following Prescrptions Were Given to Patient: Insulin Glargine [Lantus SoloStar Pen] 20 units SUBCUT QHS #1 pen Transmission Status: Pending to [facility] Atorvastatin Calcium [Lipitor] 40 mg PO QHS #30 tab Transmission Status: Pending to [facility] Metformin HCl [Metformin ER Gastric] 500 mg PO DAILY #30 [id number] Transmission Status: Pending to [facility] Lisinopril [Zestril] 10 mg PO DAILY #30 tab Transmission Status: Pending to [facility] Other Amb Orders: Glucometer Location: None Selected Primary Care Physician: Care Physician,No Primary [NON-STAFF] - Please follow up with your Primary Care Physician in: 3-5 days Patient Instructions: A1c, Using Injected Insulin, Oral Therapy for Type 2 Diabetes, Types of Insulin, Diabetes: Understanding Carbohydrates, Diabetes: Understanding Carbohydrates, Fats, and Protein, Diabetes: Ways to Take Medication Disposition: Home Minutes spent on discharge:: 35 Patient Condition:: Stable Medical Necessity - Tobacco Use Smoking Status: Current every day smoker Tobacco Use: Cigarettes Meaningful Use Info Meaningful Use Diagnoses (Choose all that apply): None applicable Code Visit Inpatient E&M: 39136 Disch Hosp
--- NOTE | 2018-10-21 09:23 | CASEMGMT ---
Social Work Note Pt is listed as self-pay. PFS saw pt. Per PFS notes, pt started a new job and doesn't have insurance yet. Pt and pt's annual income is $60-65k and pt makes too much for [employer] and Medicaid. Pt was provided [facility] application. Claudia Mattson MSW, [employer]
[2018-10-21 10:10] VITALS: BP 149/99; PULSE 102; RESP 18; TEMP 36.5; O2SAT 97
--- NOTE | 2018-10-21 10:36 | CASEMGMT ---
RN CM NOTE. Pt dc'd prior to RN CM assessment. Was seen by SW for self pay status. Frances HUNTERN RN ACM
== END 2018-10-21 10:15 | disposition home or self-care (01) | DRG 638 ==
LOC: ED 10:16 → ICU 12:06 → MS3 10-21 06:56
PROVIDERS: Admitting Provider Family Medicine; Emergency Provider Emergency Medicine; Family Provider Nurse Practitioner Family; PCP Nurse Practitioner Family; Referring Provider Family Medicine; Visit Provider Family Medicine
DX: E11.65 Type 2 diabetes mellitus with hyperglycemia (principal); N17.9 Acute kidney failure, unspecified; E87.1 Hypo-osmolality and hyponatremia; E78.5 Hyperlipidemia, unspecified; I10 Essential (primary) hypertension; F98.8 Other specified behavioral and emotional disorders with onset usually occurring in childhood and adolescence; E66.9 Obesity, unspecified; Z68.33 Body mass index [BMI] 33.0-33.9, adult; F17.210 Nicotine dependence, cigarettes, uncomplicated
CPT/HCPCS: 80048; 80061; 81001; 82962; 83036; 83735; 83930; 84100; 84484; 85025; 93005; 97802; 97803; 99285; 99406; J7030; A4216

== ENCOUNTER → 2019-03-16 06:02 | Outpatient (CLI) | payer BC, SELFPAY ==
[2018-10-20 12:27] VITALS: BMI 38.2
[2019-03-16 07:49] LABS: Absolute Lymphocyte Count 4.45 X10^3/uL (0.83-4.51); Absolute Neutrophil Count 8.5 X10^3/uL (2.0-7.7); Basophil# 0.12 X10^3/uL; Basophil% 0.8 % (0-1); Eosinophil# 0.41 X10^3/uL; Eosinophils% 2.8 % (0-5); Hematocrit 47.4 % (40-54); Hemoglobin 15.7 g/dL (13.0-16.5); Lymphocyte # 4.45 X10^3/ul (4.0); Mean Corp Hgb Conc 33.1 g/dL (32-36); Mean Corpuscular Hgb 29.1 pg (27.0-32.0); Mean Corpuscular Volume 87.8 fL (80-94); Mean Platelet Vol. 12.8 fl (6.2-12.0); Monocyte# 1.14 X10^3/uL; Monocyte% 7.7 % (0-10); NRBC Flagged by Analyzer 0 % (0-5); Neutrophil # 8.49 X10^3/uL (2.7-7.7); Neutrophil % 57.3 % (47-70); Platelet Count 260 K/mm3 (150-450); RBC Distribution Width CV 13.2 % (11.6-14.6); RBC Distribution Width SD 41.8 fl (35.1-43.9); White Blood Count 14.8 K/mm3 (4.4-11.0)
[2019-03-16 08:33] LABS: ALB/GLOB Ratio 0.9 RATIO (0.9-2.4); AST(SGOT) 34 U/L (15-37); Alanine Aminotransfer ALT/SGPT 45 U/L (16-61); Albumin, Serum 3.3 g/dL (3.2-5.0); Alkaline Phosphatase 120 U/L (45-117); Anion Gap 3 (5-15); BUN 13 mg/dL (7-18); BUN/Creat Ratio 15.4 RATIO (10-20); Calcium,Total 9.1 mg/dL (8.5-10.1); Chloride 103 mmol/L (98-107); Cholesterol 126 mg/dL (200); Creatinine, Serum 0.84 mg/dL (0.70-1.30); EST Glomerular Filtration Rate 106 mL/min (>60); Est Glom Filt Rate - Afr Amer 128 mL/min (>60); Globulin 3.7 g/dL (2.2-4.2); Glucose 263 mg/dL (74-106); High Density Lipoprotein 29 mg/dL; Potassium 4.3 mmol/L (3.5-5.1); Sodium Level 134 mmol/L (136-145); Thyroid Stim Hormone (TSH) 1.74 uIU/mL (0.358-3.74); Triglycerides 159 mg/dL; Very Low Density Lipoprotein 32 mg/dL (5-40)
[2019-03-16 08:39] LABS: Hemoglobin A1c 12.6 % (4.2-6.3)
== END ==
LOC: LAB.FUTURE 06:05 → LAB 06:08
PROVIDERS: Family Provider Family Medicine; PCP Family Medicine; Referring Provider Family Medicine; Visit Provider Family Medicine
DX: Z00.00 Encounter for general adult medical examination without abnormal findings (principal)
CPT/HCPCS: 36415; 80053; 80061; 83036; 84443; 85025

== ENCOUNTER 2020-05-10 12:05 | Observation (INO) | payer BC, SELFPAY ==
[2018-10-20 12:27] VITALS: BMI 38.2
[2020-05-10] VITALS (7 sets, daily range): BP systolic 107–129; BP diastolic 62–76; PULSE 88–112; RESP 15–22; TEMP 36.1–37; O2SAT 96–99; BMI 36.1; BMI 36.2
--- NOTE | 2020-05-10 12:27 | ED.VISSUMM ---
- ER Visit Summary Date of Service: 05/10/20 Chief Complaint: Nausea, vomiting, diarrhea History of Present Illness: The patient is a 45 M with nausea, vomiting, diarrhea since yesterday. He feels some upper and lower abdominal pain. He feels muscle cramps all over and he feels hot. He noted a small amount of blood in his stool. Physical Examination: Afebrile and vitals unremarkable except for heart rate of 112. He appears in no acute distress. Alert and oriented. Back is nontender. Abdomen is diffusely tender over the lower and upper midline. No guarding or rebound. Skin is normal without jaundice, pallor, or diaphoresis. Test Results: Labs, CT pending. Emergency Department Course and Treatment: Patient was treated with IV fluids, Zofran. He declined pain medicine. Made NPO. Labs started to come back. His white count was 16.8. Hemoglobin 16.8. Sodium 130, chloride 94, glucose 320, BUN 40, creatinine 3.8. He is receiving IV fluids. I changed his CT to noncontrast. Added cultures, urinalysis, lactate. He will need admission. CT showed fatty liver and diverticulosis. His lactate was 2.1. He is receiving additional fluids. At this time, urinalysis is still pending. Spoke with the hospitalist. Dr. Teran quested a Covid test. If it is negative, he will be admitted to the medical floor. Treatment Plan: As above Disposition: Admit pending negative Covid test Impression: Leukocytosis, acute kidney injury, hyponatremia, hyperglycemia This note was generated with [employer] dictation software. It may contain incorrect words, spelling, and punctuation that were not noted in review of the chart prior to signing ED Disposition - Plan for ED Patient: Referrals: David Cordoba MD [Primary Care Provider] -
[2020-05-10 12:43] LABS: Absolute Lymphocyte Count 3.39 X10^3/uL (0.83-4.51); Absolute Neutrophil Count 11.7 X10^3/uL (2.0-7.7); Basophil% 0.6 % (0-1); Eosinophil# 0.18 X10^3/uL; Eosinophils% 1.1 % (0-5); Hematocrit 49.5 % (40-54); Hemoglobin 16.8 g/dL (13.0-16.5); Lymphocyte # 3.39 X10^3/ul (4.0); Lymphocyte % 20.2 % (19-41); Mean Corp Hgb Conc 33.9 g/dL (32-36); Mean Corpuscular Hgb 29.6 pg (27.0-32.0); Mean Corpuscular Volume 87.3 fL (80-94); Mean Platelet Vol. 12.2 fl (6.2-12.0); Monocyte# 1.29 X10^3/uL; Monocyte% 7.7 % (0-10); NRBC Flagged by Analyzer 0 % (0-5); Neutrophil # 11.69 X10^3/uL (2.7-7.7); Neutrophil % 69.7 % (47-70); Platelet Count 324 K/mm3 (150-450); RBC Distribution Width CV 13.3 % (11.6-14.6); RBC Distribution Width SD 42.7 fl (35.1-43.9); Red Blood Count 5.67 M/mm3 (4.6-6.2); White Blood Count 16.8 K/mm3 (4.4-11.0)
[2020-05-10] MEDS: 0.9% Normal Saline 1,000 ML 1000 ML IV (12:43)
[2020-05-10] MEDS: Ondansetron 4 MG/2 ML Vial IV (12:43)
[2020-05-10 12:55] LABS: International Normalized Ratio 1.1; Prothrombin Time (Protime)PT. 13.3 SECONDS (11.7-14.9)
[2020-05-10 13:00] LABS: AST(SGOT) 24 U/L (15-37); Alanine Aminotransfer ALT/SGPT 43 U/L (16-61); Alkaline Phosphatase 151 U/L (45-117); Anion Gap 11 (5-15); BUN 40 mg/dL (7-18); BUN/Creat Ratio 10.3 RATIO (10-20); Calcium,Total 9.2 mg/dL (8.5-10.1); Chloride 94 mmol/L (98-107); Creatinine, Serum 3.88 mg/dL (0.70-1.30); EST Glomerular Filtration Rate 18 mL/min (>60); Est Glom Filt Rate - Afr Amer 22 mL/min (>60); Estimated Creatinine Clearance 26.15 ml/min; Globulin 4.2 g/dL (2.2-4.2); Glucose 320 mg/dL (74-106); Lipase 163 U/L (73-393); Potassium 4.3 mmol/L (3.5-5.1); Protein, Total 8.2 g/dL (6.4-8.2); Sodium Level 130 mmol/L (136-145)
--- NOTE | 2020-05-10 13:04 | CT_ITS ---
STUDY: CT ABDOMEN AND PELVIS WITHOUT CONTRAST REASON FOR EXAM: Male, 45 years old. pain RADIATION DOSAGE (If Supplied By Facility): CTDIvol = ( 20.95 ) mGy, DLP = ( 1277.49 ) mGycm TECHNIQUE: Transaxial images were obtained from the dome of the diaphragm to the symphysis pubis without oral contrast, and without intravenous contrast. Sagittal and coronal images were reconstructed. Individualized dose optimization techniques were used for this CT. COMPARISON: None. FINDINGS: The visualized lung bases are unremarkable. The visualized portions of the heart are within normal limits. There is decreased attenuation of the liver consistent with steatosis. Normal gallbladder and extrahepatic biliary system. Normal spleen. Normal pancreas. Normal bilateral adrenal glands. Normal right kidney. Normal left kidney. Normal visualized stomach. Normal small intestine. There are multiple colonic diverticula consistent with diverticulosis. The appendix is visualized and appears normal. Normal abdominal aorta. Normal inferior vena cava. Normal retroperitoneum. Normal urinary bladder. Normal abdominal wall. Normal osseous structures. CT/Abdomen/Pelvis without Cont IMPRESSION: Fatty infiltration of the liver. Sigmoid diverticulosis. Electronically Signed: Leighann Barnhart MD at 13:40 EST Tel , Service support ,
[2020-05-10 13:53] LABS: Red Blood Cells-Urine 0 SEEN /hpf (0-5)
[2020-05-10 13:55] LABS: Color, Urine Yellow (Yellow); Glucose, Dipstick 100 mg/dl (Normal); Ketone-Dipstick 5 mg/dl (Negative); Leukocyte Esterase-Dipstick 25 /ul (Negative); Nitrite-Dipstick Negative (Negative); Occult Blood-Urine 25 /ul (Negative); Protein-Dipstick 30 mg/dl (Negative); Specific Gravity, Urine 1.025 (1.002-1.030); Urine Clarity Cloudy (Clear); Urine Urobilinogen 1 mg/dl (Normal)
[2020-05-10 14:02] LABS: Lactic Acid 2.1 mmol/L (0.4-1.9)
[2020-05-10] MEDS: 0.9% Normal Saline 1,000 ML 999 ML IV (14:03)
[2020-05-10 14:11] LABS: Urine Bilirubin Dipstick 1 mg/dL (Negative)
--- NOTE | 2020-05-10 14:11 | HP.PCM_ITS ---
Problem List (1) Gastroenteritis Status: Acute (2) Hyponatremia Status: Acute (3) JERRY (acute kidney injury) Status: Acute (4) Diabetes mellitus Status: Chronic Qualifiers: Diabetes mellitus type: type 2 Diabetes mellitus skilled nursing insulin use: with skilled nursing use Diabetes mellitus complication status: with other specified complication Qualified Code(s): E11.69 - Type 2 diabetes mellitus with other specified complication; Z79.4 - senior care (current) use of insulin (5) Hypertension Status: Chronic Qualifiers: Hypertension type: essential hypertension Qualified Code(s): I10 - Essential (primary) hypertension (6) Hyperlipidemia Status: Chronic Qualifiers: Hyperlipidemia type: unspecified Qualified Code(s): E78.5 - Hyperlipidemia, unspecified (7) Obesity (BMI 30.0-34.9) Status: Chronic (8) Tobacco use Status: Chronic (9) ADD (attention deficit disorder) Status: Chronic Qualifiers: Hyperactivity presence: unspecified Qualified Code(s): F98.8 - Other specified behavioral and emotional disorders with onset usually occurring in childhood and adolescence History of Present Illness Date of Admission: 05/10/20 Chief Complaint: Nausea, emesis, body cramps/aches The patient is a 45 y/o M w/ PMHx: Obesity, ADD, HTN, HLD, Diabetes mellitus type II, Tobacco use who presents to the [facility] ED on 05/10/20 with history of onset nausea, emesis (nearly with all intake, although notes he tolerated breakfast this AM), loose stools ( ~ 4 days daily, initially watery and now becoming formed) as well as periumbilical and left upper abdominal pain, described as cramping discomfort as well as diffuse body aches and cramping with sensation of feeling hot and reporting a small amount of blood mixed in with his diarrhea, noted worse abdominal cramping, body cramps evening prior but has been ongoing x 3 days with associated chills following episodes of emesis otherwise no fever. All individuals in his household have been healthy. Work-up in the ED included T 97 temporally, heart rate 112, BP 129/62, respiratory rate 18, 97% on room air with repeat vitals T oral 98.2, heart rate improvement to 97, BP 115/67, respiratory rate 22, 99% room air, CBC with WC 16.8, hemoglobin 16.8, platelets 324 with left shift, unremarkable coags, CMP with sodium 130, chloride 94, BUN/creatinine 40/3.88, glucose 310, lactic acid 2.1, unremarkable hepatic profile aside alk phos 151, lipase 163, urinalysis with specific gravity elevation 1.025, protein 30, glucose 100, ketone 5, occult blood 25, negative nitrite, leukocyte esterase 25, pending urine WBCs, squamous epithelial cells in urine bacteria, blood culture x2 pending per ED, urine culture pending per ED, CT abdomen pelvis with no acute intra-abdominal findings with noted fatty infiltration of the liver and sigmoid diverticulosis. In the ED patient ministered normal saline, Zofran. Past Medical History Past Medical History (Chronic Problems): Chronic Problems (This Medical Record has been edited. Action required.) Diabetes mellitus (Chronic) Hypertension (Chronic) Hyperlipidemia (Chronic) Obesity (BMI 30.0-34.9) (Chronic) Tobacco use (Chronic) ADD (attention deficit disorder) (Chronic) Allergies No Known Allergies Allergy (Verified 05/10/20 12:08) Home Medications: Ambulatory Orders Medication Instructions Recorded Lisdexamfetamine Dimesylate 70 mg PO DAILY 10/20/18 [Vyvanse] Atorvastatin Calcium [Lipitor] 40 mg PO QHS 05/10/20 Insulin Glargine,Hum.rec.anlog 26 unit SQ QHS 05/10/20 [Basaglar Kwikpen U-100] Lisinopril [Zestril] 10 mg PO DAILY 05/10/20 Metformin HCl [Metformin HCl ER] 1,000 mg PO BIDCM 05/10/20 Surgical History: no surgical history Psychiatric History: Attn. deficit disorder Lives: Spouse/ Significant Other Smoking Status: Current every day smoker - Patient currently smokes 1 pack/day cigarette tobacco usage starting when he was approximately 22 years old-->decreased x 1.5 months now to 1/2 ppd as his job does not allow smoking. Tobacco Use: Cigarettes Alcohol: Occasional Drugs: None - *Family History Maternal History Items: - - Patient notes a maternal family history of heart disease, SD, coronary disease with stents placed. She also notes a maternal family side of notable diabetic history in both his mother's parents. Paternal History Items: - - Patient notes a paternal family history of heart disease, COPD. Patient also notes a market paternal family history with diabetes in both of his father's parents. Review of Systems Constitutional: Reports: Anorexia, Chills, Malaise, Weakness, Fatigue. Denies: Fever, Weight Change HEENT: Denies: Head Aches, Sinus Congestion, Sinus Drainage Cardiovascular: Denies: Chest Pain, Palpitations Respiratory: Denies: Cough, Shortness of Breath, Shortness of breath at rest, Shortness of breath upon exertion, Sputum production Gastrointestinal: Reports: Abdominal Pain, Diarrhea, Nausea, Vomiting Genitourinary: Denies: Dysuria Musculoskeletal: Reports: Joint Pain, Muscle pain. Denies: Joint Tenderness Skin: Denies: Rash, Wounds Neurological: Denies: Numbness, Tingling, Focal weakness Psychiatric: Reports: - - ADD.. Denies: Anxiety, Depression, Homicidal Ideations, Suicidal Ideations Hematologic/ Lymphatic: Denies: Easy Bruising, Easy Bleeding VTE Information - Inpt Only VTE Present on Admission: No VTE Mechan Device Prophylaxis: SCD's VTE Pharm Prophylaxis ordered?: No Reason prophylaxis not ordered:: Medical Contraindication Subjective: Patient laying in the ED bed, fatigued and ill-appearing, notes ongoing mild abdominal discomfort pointing to the mid abdominal and left upper regions. Objective: Physical Examination: General: awake, alert, oriented x 3 and cooperative, seated upright in the ED bed, fatigued and ill-appearing. Skin: normal color, turgor, no icterus, cyanosis. HEENT: AT/NC, EOMI, PERRLA, dry MM, no carotid bruits or JVD noted. Lungs: Diminished breath sounds bases, moderate effort, no rales, ronchi or wheezing. Heart: Mildly tachycardic with regular rhythm; no gallop, rub audible. Abdomen: soft, obese, mild discomfort to the periumbilical and left upper and lower quadrant, no rebound or guarding, ND, moderately hyperactive BS, no HSM. Extremities: no cyanosis, clubbing, or edema. Neurological: patient awake, alert, oriented as noted; cognitive function intact; pupils equally reactive to light and accomodation; cranial nerves II-XII grossly normal, moving all 4 extremities, no focal deficits, strength moderately global decrease secondary to acute presentation as noted. Psychiatric: affect appears fatigued, ill-appearing, no acute evidence of depressive or anxiety feelings. - Physical Exam Vitals/I&O's: Vital Signs Temp Pulse Resp BP Pulse Ox 98.2 F 97 22 H 115/67 99 05/10/20 13:47 05/10/20 13:47 05/10/20 13:47 05/10/20 13:47 05/10/20 13:47 Oxygen Delivery Method Room Air Weight: 259 lb 4.218 oz Body Mass Index (BMI) 36.1 Intake and Output for Last 24 Hours 05/08/20 05/09/20 05/10/20 23:59 23:59 23:59 Intake Total 1000 / 1000 Balance 1000 / 1000 Laboratory Results 05/10/20 12:30: WBC 16.8 H, RBC 5.67, Hgb 16.8 H, Hct 49.5, MCV 87.3, MCH 29.6, MCHC 33.9, RDW Std Deviation 42.7, RDW Coeff of Solis 13.3, Plt Count 324, MPV 12.2 H, Immature Gran % (Auto) 0.700, Neut % (Auto) 69.7, Lymph % (Auto) 20.2, [place] % (Auto) 7.7, Eos % (Auto) 1.1, Baso % (Auto) 0.6, Absolute Neuts (auto) 11.7 H, Absolute Lymphs (auto) 3.39, Nucleated RBC % 0 05/10/20 12:30: PT 13.3, INR 1.1, APTT 25.0 05/10/20 12:30: Sodium 130 L, Potassium 4.3, Chloride 94 L, Carbon Dioxide 25.0, Anion Gap 11, BUN 40 H, Creatinine 3.88 H, Estim Creat Clear Calc 26.15, Est GFR (MDRD) Af Amer 22 L, Est GFR (MDRD) Non-Af 18 L, BUN/Creatinine Ratio 10.3, Glucose 320 H, Calcium 9.2, Total Bilirubin 0.60, AST 24, ALT 43, Alkaline Phosphatase 151 H, Total Protein 8.2, Albumin 4.0, Globulin 4.2, Albumin/Globulin Ratio 1.0, Lipase 163 05/10/20 13:19: Lactic Acid 2.1 H* 05/10/20 13:45: Urine Color Pending, Urine Clarity Pending, Urine pH Pending, Ur Specific [place] Pending, Urine Protein Pending, Urine Glucose (UA) Pending, Urine Ketones Pending, Urine Occult Blood Pending, Urine Nitrite Pending, Urine Bilirubin Pending, Urine Urobilinogen Pending, Ur Leukocyte Esterase Pending, Urine RBC Pending, Urine WBC Pending, Ur Squamous Epith Cells Pending, Urine Bacteria Pending, Urine Mucus Pending Current Medications Sodium Chloride () 1,000 mls @ 999 mls/hr IV .Q1H1M ONE Stop: 05/10/20 14:26 Last Admin: 05/10/20 14:03 Dose: 999 mls/hr Documented by: Assessment/Plan All Active Problems (This Medical Record has been edited. Action required.) Gastroenteritis (Acute) Hyponatremia (Acute) JERRY (acute kidney injury) (Acute) The patient is a 45 y/o M w/ PMHx: Obesity, ADD, HTN, HLD, Diabetes mellitus type II, Tobacco use who presents to the [facility] ED on 05/10/20 with history of onset nausea, emesis, loose stools as well as periumbilical and left upper abdominal pain, described as cramping discomfort as well as diffuse body aches and cramping with sensation of feeling hot and reporting a small amount of blood mixed in with his diarrhea, noted worse abdominal cramping, body cramps evening prior but has been ongoing x 3 days. 1. N/V/D, ? Gastroenteritis versus possible acute viral syndrome COVID-19 with SIRS with associated lactic acidosis: We will request rapid Covid testing, if negative will transition to medical surgical floor, continue aggressive hydration, will initiate on clear liquids and advance diet as tolerated if improving, will obtain c diff, stool cx, await urinalysis and finalization although no obvious evidence UTI currently, will not start antibiotics at this time given unclear source pending stool studies as may be viral gastroenteritis, maintain on IV PPI, Procalcitonin pending, Anti-emetics, pain regimen PRN. 2. Hyponatremic, hypovolemic: Admission sodium 130, chloride 94, given GI losses likely etiology, will continue aggressive hydration and repeat CMP in AM. 3. Acute kidney injury: Secondary to acute presentation as noted with GI losses. Admission BUN/Cr 40/3.88, prior baseline creatinine noted to be 0.8. Will continue to aggressively hydrate, hold nephrotoxic medications and repeat chemistry in AM. If no improvement would plan FeNa assessment. 4. Diabetes mellitus type II: Hold oral home regimen, continue home insulin regimen, allow clears initially given presentation advance diet as tolerated, accu checks w/ ISS q 6 hours while clears only and transition ACHS once diet intake transitioned to ADA. 5. Hypertension: Given acute kidney injury holding patient lisinopril, resume once appropriate, in the interim will maintain on PRN hydralazine. 6. Hyperlipidemia: Continue home statin regimen. 7. ADD: Will hold patient vyvanse temporarily given JERRY, resume once improved renally dosed. 8. Obesity: Weight loss and lifestyle changes encouraged. 9. Tobacco Abuse: Encouraged cessation, inpatient consultation per RT, NR if desired. 10. DVT prophylaxis: SCDs, will defer chemoprophylaxis given noted occasional blood with stool. Inpatient E&M: 01069 Init Hosp L3
--- NOTE | 2020-05-10 14:20 | NURSING ---
MED SURG WHITE JERRY, LACTIC ACIDOSIS
[2020-05-10 14:21] LABS: Bacteria 2+ /hpf (None Seen); Mucous, Urine 1+ /hpf (<or=2+); Squamous Epithelial Cells - UA 0-5 SEEN /hpf (0-5); White Blood Cells 0-5 SEEN /hpf (0-5)
[2020-05-10] MEDS: 0.9% Normal Saline 1,000 ML 150 ML IV ×2 (16:34→22:41)
[2020-05-10 16:40] LABS: Magnesium 1.8 mg/dL (1.6-2.6)
[2020-05-10 16:52] LABS: Procalcitonin 0.68 ng/mL (0.00-0.09)
[2020-05-10 17:24] LABS: Reflex Lactate? Y
[2020-05-10] MEDS: Insulin Lispro 100 UNIT/ML INSULN.PEN SC (17:44)
[2020-05-10 17:46] LABS: Bedside Glucose 181 mg/dL (70-110)
[2020-05-10] MEDS: Atorvastatin Calcium 40 MG Tablet PO (21:47)
[2020-05-10 21:51] LABS: Bedside Glucose 216 mg/dL (70-110)
[2020-05-11] MEDS: Insulin Lispro 100 UNIT/ML INSULN.PEN SC ×3 (00:21→11:32)
[2020-05-11 00:26] LABS: Bedside Glucose 243 mg/dL (70-110)
[2020-05-11 03:13] VITALS: BP 127/83; PULSE 89; RESP 18; TEMP 36.6; O2SAT 95
[2020-05-11] MEDS: 0.9% Normal Saline 1,000 ML 150 ML IV (05:16)
[2020-05-11 06:40] LABS: Bedside Glucose 230 mg/dL (70-110)
[2020-05-11 06:50] LABS: Absolute Lymphocyte Count 2.98 X10^3/uL (0.83-4.51); Absolute Neutrophil Count 6.1 X10^3/uL (2.0-7.7); Basophil# 0.08 X10^3/uL; Basophil% 0.8 % (0-1); Eosinophil# 0.31 X10^3/uL; Hematocrit 44.2 % (40-54); Hemoglobin 14.3 g/dL (13.0-16.5); Lymphocyte # 2.98 X10^3/ul (4.0); Lymphocyte % 28.8 % (19-41); Mean Corp Hgb Conc 32.4 g/dL (32-36); Mean Corpuscular Hgb 28.7 pg (27.0-32.0); Mean Corpuscular Volume 88.8 fL (80-94); Monocyte# 0.84 X10^3/uL; Monocyte% 8.1 % (0-10); NRBC Flagged by Analyzer 0 % (0-5); Neutrophil # 6.11 X10^3/uL (2.7-7.7); Neutrophil % 58.9 % (47-70); Platelet Count 243 K/mm3 (150-450); RBC Distribution Width CV 13.3 % (11.6-14.6); RBC Distribution Width SD 43.3 fl (35.1-43.9); Red Blood Count 4.98 M/mm3 (4.6-6.2); White Blood Count 10.4 K/mm3 (4.4-11.0)
[2020-05-11 07:29] VITALS: O2SAT 96
[2020-05-11 07:36] LABS: ALB/GLOB Ratio 0.9 RATIO (0.9-2.4); AST(SGOT) 29 U/L (15-37); Alanine Aminotransfer ALT/SGPT 39 U/L (16-61); Albumin, Serum 3.3 g/dL (3.2-5.0); Alkaline Phosphatase 120 U/L (45-117); Anion Gap 7 (5-15); BUN 31 mg/dL (7-18); BUN/Creat Ratio 19.7 RATIO (10-20); Calcium,Total 8.4 mg/dL (8.5-10.1); Chloride 104 mmol/L (98-107); Creatinine, Serum 1.57 mg/dL (0.70-1.30); EST Glomerular Filtration Rate 52 mL/min (>60); Est Glom Filt Rate - Afr Amer 62 mL/min (>60); Estimated Creatinine Clearance 64.62 ml/min; Globulin 3.5 g/dL (2.2-4.2); Glucose 217 mg/dL (74-106); Potassium 4.1 mmol/L (3.5-5.1); Protein, Total 6.8 g/dL (6.4-8.2); Sodium Level 134 mmol/L (136-145)
[2020-05-11 09:55] VITALS: BP 134/83; PULSE 92; RESP 18; TEMP 36.7; O2SAT 96
--- NOTE | 2020-05-11 10:20 | CASEMGMT ---
ISAI RUSS Face to Face with patient for initial transition planning/care coordination assessment. RN CM introduced self and role at [facility]. Patient lying in bed, alert and oriented. Patient willing to participate in assessment and is able to answer all questions appropriately. Care providers, pharmacy, and demographics verified. Patient wishes to discharge home, denies need for home health at this time. Patient states he has no further needs or concerns at this time. CM to follow for discharge planning needs that may arise. PCP: Beryl Specialists: none Preferred Pharmacy: [facility] Insurance: [place] Prescription Benefit: yes Living Will/HPOA: none LNOK: Living Arrangements: Patient lives with in a 2 story home. Patient is independent and able to ambulates stairs. Transportation: self/ DME/HHC: Patient denies DME or previous HHC Disposition Plan: Patient to discharge home with family support and follow-up plans in place. Claudia DEL CID, RN, CM
[2020-05-11 11:40] LABS: Bedside Glucose 226 mg/dL (70-110)
--- NOTE | 2020-05-11 11:58 | DCINST_ITS ---
- Discharge Diagnoses Current Active Problems: Current Active and Chronic Problems (This Medical Record has been edited. Action required.) Diabetes mellitus (Chronic) Hypertension (Chronic) Hyperlipidemia (Chronic) Obesity (BMI 30.0-34.9) (Chronic) Tobacco use (Chronic) ADD (attention deficit disorder) (Chronic) Gastroenteritis (Acute) Hyponatremia (Acute) JERRY (acute kidney injury) (Acute) You will use the following diet at home:: Calorie/Carbohydrate Controlled (specify 1200, 1400, etc) - 1800 Your food should be the consistency of: Regular Your liquids should be the consistency of: Regular/Thin Discharge Activity: Return to Normal Activity Weight Bearing Status: Weight bearing as tolerated Call your doctor if you observe: Fever of 101 or Higher, Shortness of breath, Dizziness Instructions: Acute Kidney Failure Additional Instructions: keep well hydrated. Will need to see PCP on outpatient basis to monitor CR level Allergies/Adverse Reactions: Allergies No Known Allergies Allergy (Verified 05/10/20 12:08) Medications to take at Discharge Lisdexamfetamine Dimesylate [Vyvanse] 70 mg PO DAILY 10/20/18 Atorvastatin Calcium [Lipitor] 40 mg PO QHS 05/10/20 Insulin Glargine,Hum.rec.anlog [Basaglar Kwikpen U-100] 26 unit SQ QHS 05/10/20 Lisinopril [Zestril] 10 mg PO DAILY 05/10/20 Metformin HCl [Metformin HCl ER] 1,000 mg PO BIDCM 05/10/20 Primary Care Physician: David Cordoba MD [Primary Care Provider] - Please follow up with your Primary Care Physician in: 1-2 weeks Test Results: Test results from this visit will be discussed in further detail at your follow- up appointment, if applicable. Proposed Discharge Date: 05/11/20
[2020-05-11 13:03] LABS: Anion Gap 5 (5-15); BUN 26 mg/dL (7-18); BUN/Creat Ratio 19.3 RATIO (10-20); Calcium,Total 8.4 mg/dL (8.5-10.1); Chloride 105 mmol/L (98-107); Creatinine, Serum 1.35 mg/dL (0.70-1.30); EST Glomerular Filtration Rate 61 mL/min (>60); Est Glom Filt Rate - Afr Amer 74 mL/min (>60); Estimated Creatinine Clearance 75.15 ml/min; Glucose 232 mg/dL (74-106); Potassium 4.3 mmol/L (3.5-5.1); Sodium Level 135 mmol/L (136-145)
[2020-05-11 13:47] VITALS: BP 148/100; PULSE 96; RESP 18; TEMP 36.6; O2SAT 97
[2020-05-11 14:05] VITALS: BP 148/100; PULSE 86; RESP 18; TEMP 37.1; O2SAT 97
--- NOTE | 2020-05-11 20:04 | DS.PCM_ITS ---
Discharge Date and Diagnosis - Problem List Patient Problems: Active and Suspected Problems (This Medical Record has been edited. Action required.) Gastroenteritis (Acute) Hyponatremia (Acute) JERRY (acute kidney injury) (Acute) Date of Admission: 05/10/20 Date of Discharge: 05/12/20 - Primary Discharge Diagnosis Acute Problems: Active Problems (This Medical Record has been edited. Action required.) Gastroenteritis (Acute) Hyponatremia (Acute) JERRY (acute kidney injury) (Acute) - Secondary Discharge Diagnosis Chronic Problems: Chronic Problems (This Medical Record has been edited. Action required.) Diabetes mellitus (Chronic) Hypertension (Chronic) Hyperlipidemia (Chronic) Obesity (BMI 30.0-34.9) (Chronic) Tobacco use (Chronic) ADD (attention deficit disorder) (Chronic) Hospital Course and Treatment Imaging Results: Diagnostic Data Abdomen/Pelvis CT 05/10/20 13:04 IMPRESSION: Fatty infiltration of the liver. Sigmoid diverticulosis. Electronically Signed: Leighann Barnhart MD at 13:40 EST Tel , Service support , Operations: None Procedures: None Summary of Care Provided: The patient is a 45 year old M with an extensive past medical history as [facility] ed was admitted through the ED with a complaint of nausea, vomiting as well as abdominal pain and loose stools. He also had diffuse body aches and cramping. In the ED, heart rate was initially 03/03/2011 and respiratory rate was 22. White cell count was 16.8. Lactic acid was 2.1 and urinalysis was negative for any evidence of UTI. CT of the abdomen and pelvis showed no acute abdominopelvic pathology. Creatinine was 3.88. He was admitted and managed for JERRY due to acute gastroenteritis as well as hyponatremia which is likely due to dehydration. Sodium was 130 on admission. He was hydrated with IV fluids initially kept n.p.o. Creatinine resolved and symptoms resolved completely. COVID-19 test done was negative. Neck trended down to 1.35 with hydration and patient felt much better. He was able to tolerate an oral diet. He remained stable and requested to be discharged home. He was discharged home on 05/12/2020 and is to follow-up with his primary care doctor in 1 to 2 weeks. He was encouraged to keep well-hydrated. Patient seen and examined prior to discharge. He had no complaints. Review of systems otherwise negative. Labs and vitals reviewed. Home medication reviewed and reconciled. O/E: Vital Signs Temp Pulse Resp BP Pulse Ox 98.7 F 86 18 148/100 H 97 05/11/20 14:05 05/11/20 14:05 05/11/20 14:05 05/11/20 14:05 05/11/20 14:05 [] Patient Problems: Active and Suspected Problems (This Medical Record has been edited. Action required.) Gastroenteritis (Acute) Hyponatremia (Acute) JERRY (acute kidney injury) (Acute) - Physical Exam Vitals/I&O's: Vital Signs Temp Pulse Resp BP Pulse Ox 98.7 F 86 18 148/100 H 97 05/11/20 14:05 05/11/20 14:05 05/11/20 14:05 05/11/20 14:05 05/11/20 14:05 Oxygen Delivery Method Room Air Weight: 261 lb 14.546 oz Body Mass Index (BMI) 36.2 Intake and Output for Last 24 Hours 05/09/20 05/10/20 05/11/20 23:59 23:59 23:59 Intake Total 3027.5 / 3327.5 2637.5 / 2637.5 Balance 3027.5 / 3327.5 2637.5 / 2637.5 General: Alert, Oriented x3, Cooperative HEENT: Atraumatic, PERRLA, EOMI, Normocephalic Neck: Supple, No JVD, Negative Carotid Bruits Lungs: Clear to auscultation, Normal air movement Cardiovascular: Regular rate, No murmurs Abdomen: Bowel Sounds Present, Soft, Non Tender Extremities: No edema, Capillary Refill Less than 3 Seconds Skin: No rashes, No breakdown Musculoskeletal: No Tenderness to Palpation of Joints or Extremities Neurological: Cranial nerves II-XII grossly intact Psych/Mental Status: Normal Affect, Appropriate Microbiology Past 72 Hours 05/10/20 13:45 Urine, Clean Catch Urine Culture - Preliminary Culture exhibits no growth. 05/10/20 20:30 Stool Enteric Bacteriology - Final 05/10/20 20:30 Stool C. difficile DNA Amplification - Final 05/10/20 19:39 Mucosa - Nasopharyngeal Respiratory Panel (PCR) - Final 05/10/20 14:23 Mucosa - Nose SARS-CoV-2 Antigen (Rapid) - Final Laboratory Results 05/10/20 21:45: POC Glucose 216 H 05/11/20 00:18: POC Glucose 243 H 05/11/20 06:30: WBC 10.4, RBC 4.98, Hgb 14.3, Hct 44.2, MCV 88.8, MCH 28.7, MCHC 32.4, RDW Std Deviation 43.3, RDW Coeff of Solis 13.3, Plt Count 243, MPV 12.0, Immature Gran % (Auto) 0.400, Neut % (Auto) 58.9, Lymph % (Auto) 28.8, Rich % (Auto) 8.1, Eos % (Auto) 3.0, Baso % (Auto) 0.8, Absolute Neuts (auto) 6.1, Abso lute Lymphs (auto) 2.98, Nucleated RBC % 0 05/11/20 06:30: Sodium 134 L, Potassium 4.1, Chloride 104, Carbon Dioxide 23.0, Anion Gap 7, BUN 31 H, Creatinine 1.57 H, Estim Creat Clear Calc 64.62, Est GFR (MDRD) Af Amer 62, Est GFR (MDRD) Non-Af 52 L, BUN/Creatinine Ratio 19.7, Glucose 217 H, Calcium 8.4 L, Total Bilirubin 0.40, AST 29, ALT 39, Alkaline Phosphatase 120 H, Total Protein 6.8, Albumin 3.3, Globulin 3.5, Albumi n/Globulin Ratio 0.9 05/11/20 06:32: POC Glucose 230 H 05/11/20 11:30: POC Glucose 226 H 05/11/20 12:44: Sodium 135 L, Potassium 4.3, Chloride 105, Carbon Dioxide 25.0, Anion Gap 5, BUN 26 H, Creatinine 1.35 H, Estim Creat Clear Calc 75.15, Est GFR (MDRD) Af Amer 74, Est GFR (MDRD) Non-Af 61, BUN/Creatinine Ratio 19.3, Glucose 232 H, Calcium 8.4 L Discharge Diet: 1800 Calorie Control Diet Discharge Activity: Return to Normal Activity Weight Bearing Status: Weight bearing as tolerated Call your doctor if you observe: Fever of 101 or Higher, Shortness of breath, Dizziness Home Medications: Medications to take at Discharge Lisdexamfetamine Dimesylate [Vyvanse] 70 mg PO DAILY 10/20/18 Atorvastatin Calcium [Lipitor] 40 mg PO QHS 05/10/20 Insulin Glargine,Hum.rec.anlog [Basaglar Kwikpen U-100] 26 unit SQ QHS 05/10/20 Lisinopril [Zestril] 10 mg PO DAILY 05/10/20 Metformin HCl [Metformin HCl ER] 1,000 mg PO BIDCM 05/10/20 Primary Care Physician: David Cordoba MD [Primary Care Provider] - Please follow up with your Primary Care Physician in: 1-2 weeks Patient Instructions: Acute Kidney Failure Disposition: Home Minutes spent on discharge:: 35 Patient Condition:: Stable Medical Necessity - Tobacco Use Smoking Status: Current every day smoker Tobacco Use: Cigarettes Meaningful Use Info Meaningful Use Diagnoses (Choose all that apply): None applicable OBSV E&M: 91893 Observation care discharge
== END 2020-05-11 14:18 | disposition home or self-care (01) ==
LOC: ED 12:47 → MS3 05-11 07:16
PROVIDERS: Admitting Provider Family Medicine; Emergency Provider Emergency Medicine; PCP Family Medicine; Visit Provider Student in an Organized Health Care Education/Training Program
DX: K52.9 Noninfective gastroenteritis and colitis, unspecified (principal); E87.1 Hypo-osmolality and hyponatremia; N17.9 Acute kidney failure, unspecified; D72.829 Elevated white blood cell count, unspecified; E11.65 Type 2 diabetes mellitus with hyperglycemia; E78.5 Hyperlipidemia, unspecified; I10 Essential (primary) hypertension; E66.9 Obesity, unspecified; F98.8 Other specified behavioral and emotional disorders with onset usually occurring in childhood and adolescence; F17.210 Nicotine dependence, cigarettes, uncomplicated; Z79.899 Other long term (current) drug therapy; Z79.4 Long term (current) use of insulin; Z68.36 Body mass index [BMI] 36.0-36.9, adult; K76.0 Fatty (change of) liver, not elsewhere classified; K57.30 Diverticulosis of large intestine without perforation or abscess without bleeding
CPT/HCPCS: 36415; 74176; 80048; 80053; 81001; 82962; 83605; 83690; 83735; 84145; 85025; 85610; 85730; 87040; 87086; 87426; 87493; 87506; 87633; 96361; 96365; 96366; 96375; 99218; 99251; 99285; 99406; J7030; A4216; G0378; G0463; J2405

== ENCOUNTER 2021-08-27 08:19 | Emergency (ER) | payer OTHER, SELFPAY ==
[2021-08-27 08:21] VITALS: BP 162/104; PULSE 104; RESP 17; TEMP 36.2; O2SAT 100; BMI 34.5
--- NOTE | 2021-08-27 09:33 | EX.ED.DYSGE1 ---
HPI History of Present Illness Chief Complaint: Hyperglycemia Onset/Context/Timing Onset: Days (5) Context: Gradual Onset Timing: Continuous Quality: Sharp Location: Low back Worsened by: Nothing Relieved by: Nothing Narrative Narrative: Patient presents with elevated blood sugars that have been getting worse over the last 5 days. Patient states his blood sugar last night was over 500. Patient states he took his normal insulin and metformin. Patient states his blood sugar again today was over 500. Patient admits to some polyuria and polydipsia. Patient also admits to some pain in his low back. Patient describes it as sharp. Patient states nothing makes it better and nothing makes it worse. [facility] Medical History Diabetes Home Medications lisdexamfetamine 70 mg capsule 70 mg PO DAILY ADHD 10/20/18 [History Last Taken 2 Days Ago ~05/08/20] atorvastatin 40 mg tablet 40 mg PO QHS cholesterol 05/10/20 [History Last Taken 05/09/20] insulin glargine 100 unit/mL (3 mL) subcutaneous pen 26 unit SQ QHS dm 05/10/20 [History Last Taken 05/09/20] lisinopril 10 mg tablet 10 mg PO DAILY bp 05/10/20 [History Last Taken 05/09/20] metformin 500 mg tablet,extended release 24 hr 1,000 mg PO BIDCM dm 05/10/20 [History Last Taken 05/09/20] Allergy/AdvReac Type Severity Reaction Status Date / Time No Known Allergies Allergy Verified 08/27/21 08:20 Surgical History no surgical history no surgical history Social History Smoking Status: Current every day smoker tobacco type: cigarettes ROS ROS ED Constitutional Constitutional ED: Denies chills or fever(s) Eyes Eyes: Denies blurry vision or change in vision ENT ENT ED: Denies rhinorrhea or sore throat Cardiovascular Cardiovascular: Denies chest pain or palpitations Respiratory/Chest Respiratory/Chest: Denies cough or dyspnea Gastrointestinal Gastrointestinal: Denies nausea or vomiting Genitourinary Genitourinary ED: Reports urinary frequency; Denies dysuria or hematuria Musculoskeletal Musculoskeletal: Reports back pain; Denies neck pain Integumentary Denies abscess or rash Neurologic Neurologic: Denies headache(s) or weakness Endocrine Endocrinology: Reports polydipsia and polyuria Allergic/Immunologic Allergic/Immunologic ED: Denies mouth swelling or urticaria EXAM Physical Exam Const Vital Signs: 08/27/21 08:21 Temperature 97.1 F L Temperature Source Temporal Pulse Rate 104 H Respiratory Rate 17 Blood Pressure 162/104 H Blood Pressure Mean 123 Pulse Ox 100 Oxygen Delivery Method Room Air Positive well nourished and well developed General Appearance ED: well developed HEENT Reports moist mucous membranes Neck supple and no JVD Resp normal respiratory effort and clear to auscultation bilaterally Cardio regular rate, regular rhythm and no murmurs GI normal to inspection, nondistended, normoactive bowel sounds and non-tender Palpation: soft Extremity normal to inspection General Extremety ED: Negative for edema or tenderness General Extremity: Negative for edema Neuro oriented x3, CN's II-XII intact bilaterally and no sensory deficits noted Sensorium / Orientation: alert Motor Exam: strength 5/5 throughout Psych mental status grossly normal Skin no rashes or lesions noted MDM MDM MDM Narrative Medical decision making narrative: Patient was given IV fluids here. CBC shows a mild leukocytosis of 13.1. Comprehensive metabolic profile showed a glucose of 460. Anion gap was normal. BUN and creatinine were normal. Electrolytes were within normal limits. Serum osmolality was calculated was normal. Serum acetone was negative. Urinalysis does not show any evidence of urinary tract infection or hematuria. Venous blood gas shows a pH of 7.394, PCO2 of 36.3, PO2 of 105.2, bicarb of 21.8, and O2 saturation of 98.1 on room air. Patient was given a dose of Humalog here. Repeat blood glucose was 319 after the insulin. Patient does not show any evidence of diabetic ketoacidosis or hyperosmolar state. Patient was discharged home. Patient was instructed to follow-up with his primary care physician in 5 to 7 days for further adjustment of his insulin and metformin. Patient understands and is agreeable with the plan. All questions were answered. Lab Data Attestation: I reviewed the patient's lab results. Labs: Laboratory Results - last 24 hr 08/27/21 08/27/21 08/27/21 08:40 08:40 08:40 WBC 13.1 H RBC 5.58 Hgb 16.5 Hct 49.3 MCV 88.4 MCH 29.6 MCHC 33.5 RDW Std Deviation 42.1 RDW Coeff of Solis 13.0 Plt Count 213 MPV 13.2 H Immature Gran % (Auto) 0.800 Neut % (Auto) 62.3 Lymph % (Auto) 25.3 [place] % (Auto) 7.1 Eos % (Auto) 3.8 Baso % (Auto) 0.7 Absolute Neuts (auto) 8.1 H Absolute Lymphs (auto) 3.31 Nucleated RBC % 0 Sodium 133 L Potassium 4.0 Chloride 103 Carbon Dioxide 21.0 Anion Gap 9 BUN 11 Creatinine 1.04 Estim Creat Clear Calc 96.54 Est GFR (MDRD) Af Amer 100 Est GFR (MDRD) Non-Af 82 BUN/Creatinine Ratio 10.6 Glucose 460 H* Calcium 9.1 Total Bilirubin 0.30 AST 20 ALT 48 Alkaline Phosphatase 148 H Total Protein 7.7 Albumin 3.7 Globulin 4.0 Albumin/Globulin Ratio 0.9 Urine Color Urine Clarity Urine pH Ur Specific [place] Urine Protein Urine Glucose (UA) Urine Ketones Urine Occult Blood Urine Nitrite Urine Bilirubin Urine Urobilinogen Ur Leukocyte Esterase Urine RBC Urine WBC Ur Squamous Epith Cells Urine Bacteria Urine Mucus Acetone Level NEGATIVE 08/27/21 09:00 WBC RBC Hgb Hct MCV MCH MCHC RDW Std Deviation RDW Coeff of Solis Plt Count MPV Immature Gran % (Auto) Neut % (Auto) Lymph % (Auto) [place] % (Auto) Eos % (Auto) Baso % (Auto) Absolute Neuts (auto) Absolute Lymphs (auto) Nucleated RBC % Sodium Potassium Chloride Carbon Dioxide Anion Gap BUN Creatinine Estim Creat Clear Calc Est GFR (MDRD) Af Amer Est GFR (MDRD) Non-Af BUN/Creatinine Ratio Glucose Calcium Total Bilirubin AST ALT Alkaline Phosphatase Total Protein Albumin Globulin Albumin/Globulin Ratio Urine Color Yellow Urine Clarity Clear Urine pH 6.0 Ur Specific [place] 1.015 Urine Protein 30 H Urine Glucose (UA) 1000 H Urine Ketones Negative Urine Occult Blood Negative Urine Nitrite Negative Urine Bilirubin Negative Urine Urobilinogen Normal Ur Leukocyte Esterase Negative Urine RBC 0 SEEN Urine WBC 0 SEEN Ur Squamous Epith Cells 0 SEEN Urine Bacteria 0 SEEN Urine Mucus 0 SEEN Acetone Level ABG Data ABG results: ABG 08/27/21 10:05 Specimen Type KIM VBG pH 7.39 VBG pO2 105 H VBG HCO3 22 VBG Total CO2 23 VBG O2 Sat (Calc) 98 H VBG Base Excess -3 L POC Mix VBG pCO2 Pt Tmp 35.3 L O2 Delivery Device Room Air Discharge Plan Triage Chief Complaint: Hyperglycemia ED Provider: Familia Santiago Dx/Rx/DC Orders Clinical Impression: Hyperglycemia, Diabetes mellitus Instructions: ED Diabetic Hyperglycemia Prescriptions: No Action lisdexamfetamine 70 MG capsule 70 mg PO DAILY Label Comments: TAKE 1 CAPSULE BY MOUTH EVERY DAY IN THE MORNING metformin 500 MG tablet extended release 24 hr 1,000 mg PO BIDCM insulin glargine 100 UNIT/ML insulin pen 26 unit SQ QHS atorvastatin 40 MG tablet 40 mg PO QHS lisinopril 10 MG tablet 10 mg PO DAILY Primary Care Provider: David Cordoba Referrals: David Cordoba MD [Primary Care Provider] - 3-5 Days Disposition Disposition: Home, Self Care
[2021-08-27] MEDS: 0.9% Normal Saline 1,000 ML 1000 ML IV ×2 (09:46→11:25)
[2021-08-27 09:50] LABS: Bacteria 0 SEEN /hpf (None Seen); Mucous, Urine 0 SEEN /hpf (<or=2+); Red Blood Cells-Urine 0 SEEN /hpf (0-5); Squamous Epithelial Cells - UA 0 SEEN /hpf (0-5); White Blood Cells 0 SEEN /hpf (0-5)
[2021-08-27 09:58] LABS: Color, Urine Yellow (Yellow); Glucose, Dipstick 1000 mg/dl (Normal); Ketone-Dipstick Negative (Negative); Leukocyte Esterase-Dipstick Negative /ul (Negative); Nitrite-Dipstick Negative (Negative); Occult Blood-Urine Negative /ul (Negative); Protein-Dipstick 30 mg/dl (Negative); Specific Gravity, Urine 1.015 (1.002-1.030); Urine Bilirubin Dipstick Negative (Negative); Urine Clarity Clear (Clear); Urine Urobilinogen Normal (Normal)
[2021-08-27 09:59] LABS: Absolute Lymphocyte Count 3.31 X10^3/uL (0.83-4.51); Absolute Neutrophil Count 8.1 X10^3/uL (2.0-7.7); Basophil# 0.09 X10^3/uL; Basophil% 0.7 % (0-1); Eosinophil# 0.49 X10^3/uL; Eosinophils% 3.8 % (0-5); Hematocrit 49.3 % (40-54); Hemoglobin 16.5 g/dL (13.0-16.5); Lymphocyte # 3.31 X10^3/ul (0.83-4.51); Lymphocyte % 25.3 % (19-41); Mean Corp Hgb Conc 33.5 g/dL (32-36); Mean Corpuscular Hgb 29.6 pg (27.0-32.0); Mean Corpuscular Volume 88.4 fL (80-94); Mean Platelet Vol. 13.2 fl (6.2-12.0); Monocyte# 0.93 X10^3/uL; Monocyte% 7.1 % (0-10); NRBC Flagged by Analyzer 0 % (0-5); Neutrophil # 8.13 X10^3/uL (2.7-7.7); Neutrophil % 62.3 % (47-70); Platelet Count 213 K/mm3 (150-450); RBC Distribution Width SD 42.1 fl (35.1-43.9); Red Blood Count 5.58 M/mm3 (4.6-6.2); White Blood Count 13.1 K/mm3 (4.4-11.0)
[2021-08-27 10:11] LABS: Blood Gas Specimen Type VEN; O2 Delivery Device Room Air; VBG BASE EXCESS -3 mmol/L (-1.0-3.5); VBG Bicarbonate 22 mmol/L (22-26); VBG PO2 105 mmHg (25-40); VBG SO2 98 % (50-70); VBG TCO2 23 mmol/L (23-33); VBG pCO2 35.3 mmHg (41-51); VBG pH 7.39 (7.32-7.42)
[2021-08-27 10:38] LABS: ALB/GLOB Ratio 0.9 RATIO (0.9-2.4); AST(SGOT) 20 U/L (15-37); Alanine Aminotransfer ALT/SGPT 48 U/L (16-61); Albumin, Serum 3.7 g/dL (3.2-5.0); Alkaline Phosphatase 148 U/L (45-117); Anion Gap 9 (5-15); BUN 11 mg/dL (7-18); BUN/Creat Ratio 10.6 RATIO (10-20); Calcium,Total 9.1 mg/dL (8.5-10.1); Chloride 103 mmol/L (98-107); Creatinine, Serum 1.04 mg/dL (0.70-1.30); EST Glomerular Filtration Rate 82 mL/min (>60); Est Glom Filt Rate - Afr Amer 100 mL/min (>60); Estimated Creatinine Clearance 96.54 ml/min; Glucose 460 mg/dL (74-106); Protein, Total 7.7 g/dL (6.4-8.2); Sodium Level 133 mmol/L (136-145)
[2021-08-27] MEDS: Insulin Lispro 100 UNIT/ML INSULN.PEN 15 UNIT SC (11:23)
[2021-08-27 12:10] LABS: Bedside Glucose 319 mg/dL (74-106)
== END 2021-08-27 12:17 | disposition home or self-care (01) ==
PROVIDERS: Emergency Provider Emergency Medicine; PCP Family Medicine; Visit Provider Emergency Medicine
DX: E11.65 Type 2 diabetes mellitus with hyperglycemia (principal); R35.89 Other polyuria; F17.210 Nicotine dependence, cigarettes, uncomplicated
CPT/HCPCS: 80053; 81001; 82009; 82803; 82962; 85025; 96360; 96361; 99282; J7030; A4216

== ENCOUNTER 2023-07-30 22:43 | Emergency (ER) | payer OTHER, SELFPAY ==
[2023-07-30 22:43] VITALS: BP 153/93; PULSE 82; RESP 16; TEMP 36.6; O2SAT 98; BMI 32.8
[2023-07-30] MEDS: Cephalexin 250 MG Capsule 500 MG PO (23:17)
[2023-07-30] MEDS: Diphth,Pertuss(Acell),Tet Vac 0.5 ML Vial IM (23:17)
--- NOTE | 2023-07-31 00:19 | EDS_ITS ---
HPI History of Present Illness Chief Complaint: Laceration Informant: patient Narrative Narrative: Patient is a 48-year-old male with past medical history of ADD hypertension hyperlipidemia and insulin-dependent diabetes. He states he is right-hand dominant. He reports 1 to 2 hours prior to arrival he was at work and he accidentally caught his right forearm on a piece of metal that was sticking out of the drywall. He sustained a laceration. He is unsure of his tetanus status. He denies any numbness tingling or weakness but has concerned that the wound may need closed and therefore comes in for evaluation [facility] Medical History Diabetes Home Medications ?Medication ?Instructions ?Recorded ?Last Taken ?Type lisdexamfetamine 70 mg capsule 70 mg PO DAILY ADHD 10/20/18 2 Days Ago History ~05/08/20 atorvastatin 40 mg tablet 40 mg PO QHS cholesterol 05/10/20 05/09/20 History insulin glargine 100 unit/mL (3 26 unit SQ QHS dm 05/10/20 05/09/20 History mL) subcutaneous pen lisinopril 10 mg tablet 10 mg PO DAILY bp 05/10/20 05/09/20 History metformin 500 mg tablet,extended 1,000 mg PO BIDCM dm 05/10/20 05/09/20 History release 24 hr cephalexin 500 mg capsule 500 mg PO TID 7 days #21 caps 07/31/23 Unknown Rx Allergy/AdvReac Type Severity Reaction Status Date / Time No Known Allergies Allergy Verified 07/30/23 22:47 Social History Smoking Status: Current every day smoker tobacco type: cigarettes ROS ROS ED Constitutional Constitutional ED: Denies chills or fever(s) ENT ENT ED: Denies sore throat Cardiovascular Cardiovascular: Denies chest pain Respiratory/Chest Respiratory/Chest: Denies cough or dyspnea Gastrointestinal Gastrointestinal: Denies abdominal pain, diarrhea, nausea or vomiting Genitourinary Genitourinary ED: Denies dysuria Musculoskeletal Musculoskeletal: Reports other Details: Positive right forearm laceration Integumentary Reports other Details: Positive right forearm laceration ; Denies rash Neurologic Neurologic: Denies headache(s), paresthesias or weakness Hematologic/Lymphatic Hematologic/Lymphatic: Denies easy bleeding or easy bruising EXAM Physical Exam Const Vital Signs: 07/30/23 22:43 Temperature 97.8 F Temperature Source Temporal Pulse Rate 82 Respiratory Rate 16 Blood Pressure 153/93 H Blood Pressure Mean 113 Pulse Ox 98 Oxygen Delivery Method Room Air Positive well nourished and well developed General Appearance ED: well developed; Negative for pallor HEENT HEENT Narrative: Normocephalic atraumatic Eyes PERRL and EOMs intact bilaterally Neck supple Resp normal respiratory effort and clear to auscultation bilaterally Cardio regular rate and regular rhythm Extremity Extremity Narrative: Right upper extremity is neurovascularly intact; AIN/PIN are intact and normal. Along the dorsal aspect of the middle third of the right forearm there is a 2 cm subcutaneous layer deep laceration that is linear in nature with minimal ooze of blood and no foreign body. No ligamentous or tendon injury noted. Remainder of the exam is normal Neuro oriented x3, CN's II-XII intact bilaterally and no sensory deficits noted Sensorium / Orientation: alert Motor Exam: strength 5/5 throughout Psych mental status grossly normal Skin no rashes or lesions noted Skin Narrative: Laceration to the right forearm as documented above without surrounding findings for infection General Skin Exam: Negative for jaundice or pallor MDM MDM MDM Narrative Medical decision making narrative: Patient arrived to the ER hypertensive but has a past medical history of this and otherwise with stable vital. He sustained a simple laceration to his right forearm and as there is no physical exam findings for ligamentous injury tendon injury or retained foreign body I do not feel the need for imaging or laboratory studies. Patient also has no obvious findings for secondary infection at this time. The wound was cleaned and closed as documented below and his tetanus status was updated. As he is not insulin-dependent diabetic he is technically immunosuppressed and therefore he will be placed on prophylactic antibiotics. However at this time with the wound being closed his tetanus updated and no signs of ligamentous tendon or bony injury there is no need for further evaluation and he is otherwise safe for discharge Patient had the right forearm cleaned with chlorhexidine. It was anesthetized using 5 mL of 2% lidocaine with epinephrine and local fashion. The wound was copiously irrigated with normal saline. Then six 4-0 Ethilon sutures were placed in simple interrupted fashion. This brought the wound together with good approximation. Patient tolerated the procedure well without complication. History & Record Review Discussion w/independent historian: Patient Discharge Plan Triage Chief Complaint: Laceration ED Provider: Floyd Gallegos Dx/Rx/DC Orders Clinical Impression: Laceration of right forearm, ADD (attention deficit disorder), Hypertension, Diabetes mellitus Instructions: ED Laceration Extremity Prescriptions: New cephalexin 500 mg capsule 500 mg PO TID 7 Days Qty: 21 0RF No Action lisdexamfetamine 70 MG capsule 70 mg PO DAILY Patient Comments: TAKE 1 CAPSULE BY MOUTH EVERY DAY IN THE MORNING metformin 500 MG tablet extended release 24 hr 1,000 mg PO BIDCM insulin glargine 100 UNIT/ML insulin pen 26 unit SQ QHS atorvastatin 40 MG tablet 40 mg PO QHS lisinopril 10 MG tablet 10 mg PO DAILY Primary Care Provider: Care Physician,No Primary Referrals: Corporate,Care [Group of Physicians] - Care Physician,No Primary [Primary Care Provider] - Activity Restrictions/Additional Instructions: Because of your diabetes take the prescribed antibiotic as directed to prevent infection. Follow-up with Workmen's Comp. your family doctor or the ER in 7 to 10 days for suture removal. If you have any further concerns please return to the ER for repeat evaluation. Print Language: Ukrainian Disposition Disposition: Home, Self Care
[2023-07-31 00:35] VITALS: BP 153/93; PULSE 82; RESP 16; TEMP 36.6; O2SAT 98
== END 2023-07-31 00:37 | disposition home or self-care (01) ==
PROVIDERS: Emergency Provider Emergency Medicine; Visit Provider Emergency Medicine
DX: S51.811A Laceration without foreign body of right forearm, initial encounter (principal); E11.9 Type 2 diabetes mellitus without complications; Z79.4 Long term (current) use of insulin; Z79.84 Long term (current) use of oral hypoglycemic drugs; F17.210 Nicotine dependence, cigarettes, uncomplicated; Y99.0 Civilian activity done for income or pay; W26.8XXA Contact with other sharp object(s), not elsewhere classified, initial encounter; I10 Essential (primary) hypertension; Y92.89 Other specified places as the place of occurrence of the external cause; Z23 Encounter for immunization
CPT/HCPCS: 12001; 90471; 90715; 99282; A4216